=== PATIENT | male | born 1950 | race Hispanic/Latino ===

== ENCOUNTER 2016-07-20 12:28 | Day surgery (SDC) | payer MEDICARE, OTHER ==
[2016-07-15 10:18] VITALS: BMI 29.0
[2016-07-20 12:51] LABS: ADD MANUAL DIFF? NO
[2016-07-20 12:58] LABS: BASO # 0.05 K/mm3 (0.0-2.0); EOS # 0.1 (0.0-0.7); GRAN # 2.65 (1.4-6.5); GRAN % 53.3 % (50.0-68.0); HEMATOCRIT 42.3 % (42.0-52.0); LYMPH # 1.7 (1.2-3.4); LYMPH % 33.2 % (22.0-35.0); MEAN CELL VOLUME 90.8 fL (80.0-105.0); MEAN CORPUSCULAR HEMOGLOBIN 31.5 pg (25.0-35.0); MEAN CORPUSCULAR HGB CONC 34.8 g/dl (31.0-37.0); MEAN PLATELET VOLUME 9.4 fl (7.0-11.0); MONO # 0.5 (0.1-0.6); MONO % 10.5 % (1.0-6.0); PLATELET COUNT 242 10^3/uL (120.0-450.0); RED CELL DISTRIBUTION WIDTH 12.9 % (11.5-14.5)
[2016-07-20 13:04] LABS: BLOOD UREA NITROGEN 20 mg/dL (7-21); CARBON DIOXIDE 28 mmol/L (21-33); CHLORIDE 102 mmol/L (98-107); GFR AFRICAN-AMERICAN > 60; GLUCOSE,RANDOM 98 mg/dL (70-110); POTASSIUM 3.9 mmol/L (3.6-5.0); SODIUM 139 mmol/L (132-148)
[2016-07-20 13:09] LABS: INR 0.99 (0.93-1.08); PARTIAL THROMBOPLASTIN TIME 28.7 Seconds (23.7-30.8)
--- NOTE | 2016-07-20 14:33 | CP.SDSHP ---
Same Day Surgery H & P - History Proposed Procedure: Cat scan guided Lung biopsy Pre-Op Diagnosis: Lung mass - Previous Medical/Surgical History Pulmonary: Smoking (Smoked 1PPD x 40 years,quit 2 months ago.), Cough/URI (Has occasional cough), Other (Has c/o mild R upper chest pain) Misc: Other (had a mole on the dorsum of the L foot,,biopsy reported to show cancer.Had Fx of R big toe ,fixed with a nivia splint.) Pain: 2.Mild Pain (c/o mild pain in R upper chest) Comments: Cat scan of the chest showed a spiculated mass in the R upper lung Previous Surgical History: Excision of axillary cyst. Excision cyst on the back of the neck. Excision mole of the L foot.It was reported to be cancer. Hernioraphy infra umbilical region - Allergies Allergies: Allergies No Known Allergies Allergy (Verified 06/14/12 17:37) - Physical Exam General Appearance: Well nourished male Vital Signs: Vital Signs 07/20/16 13:05 Temperature 98.5 F Pulse Rate 74 Respiratory 20 Rate Blood Pressure 138/80 O2 Sat by Pulse 97 Oximetry Mental Status: Alert & Oriented x3 Neuro: WNL Heart: WNL Lungs: WNL - {Optional Preform as Required} Abdomen: WNL - Impression Impression: R lung mass - Date & Time Date: 07/20/16 Time: 14:15 Short Stay Discharge - Short Stay Discharge Admitting Diagnosis/Reason for Visit: LUNG MASS R91.1 Disposition: HOME/ ROUTINE
[2016-07-20] MEDS ORDERED: Midazolam 2 MG/2 ML VIAL ONE (14:45)
[2016-07-20] MEDS ORDERED: Oxycodone/Acetaminophen 5/325 mg Tab PO PRN (15:44)
[2016-07-20] MEDS ORDERED: Sodium Chloride 0.45% 1,000 ML IV SCH (15:45)
[2016-07-20 16:45] VITALS: TEMP 98; O2SAT 98
--- NOTE | 2016-07-20 17:23 | CT ---
PROCEDURE: CT guided right lung biopsy. HISTORY: 6.5 cm right hilar and mediastinal mass. Value 8 for malignancy. Smoker PHYSICIAN(S): Fabrizio Nevarez MD. TECHNIQUE: The relative risks and indications of the procedure were explained to the patient and consent obtained. The patient was placed supine on the CT scanner and preliminary images through the upper lungs obtained. Conscious sedation and monitoring were provided throughout the procedure by a nurse. There is a 6 cm mass involving the right hilum and extending into the right superior mediastinum. A right anterior approach was selected and the area prepped and draped in the usual sterile fashion. 1% Xylocaine was used to anesthetize the skin and soft tissues. A 19 gauge guiding needle was advanced into the 6.5 cm right hilar mass. Its position was confirmed with CT. Using coaxial technique, multiple core biopsies were obtained. The postprocedure images show no evidence of significant hemorrhage or large pneumothorax.. IMPRESSION: 1. CT-guided right lung biopsy as described above.
[2016-07-20 17:58] VITALS: BP 131/74; PULSE 66; RESP 18
--- NOTE | 2016-07-21 11:17 | RAD ---
HISTORY: Post right lung biopsy. Relevant interventional procedure(s): July 20, 2016. Biopsy right hilar mass. COMPARISON: 03/05/2012. FINDINGS: LUNGS: No pneumothorax following biopsy right hilar mass. No PLEURA: No adverse findings following CT directed biopsy performed July 20, 2016. 16:35. CARDIOVASCULAR: No radiographic findings to suggest acute or significant cardiovascular disease. OSSEOUS STRUCTURES: No significant abnormalities. VISUALIZED UPPER ABDOMEN: Normal. OTHER FINDINGS: None. IMPRESSION: No pneumothorax following right lung/ hilum biopsy.
== END 2016-07-20 18:30 | disposition home or self-care (01) ==
LOC: SDS 12:28
PROVIDERS: ATTEND Radiology Vascular & Interventional Radiology
DX: C34.01 Malignant neoplasm of right main bronchus (principal); Z87.891 Personal history of nicotine dependence; Z85.828 Personal history of other malignant neoplasm of skin
CPT/HCPCS: 32405; 36415; 71010; 77012; 80048; 85025; 85610; 85730; 88305; J2250; J2405; J3010; J7030

== ENCOUNTER 2016-08-26 10:59 | Day surgery (SDC) | payer MEDICARE, OTHER ==
[2016-08-26 11:48] LABS: HEMATOCRIT 39.4 % (42.0-52.0); MEAN CELL VOLUME 89.7 fL (80.0-105.0); MEAN CORPUSCULAR HEMOGLOBIN 30.5 pg (25.0-35.0); MEAN PLATELET VOLUME 9.1 fl (7.0-11.0); RED CELL DISTRIBUTION WIDTH 12.9 % (11.5-14.5); WHITE BLOOD COUNT 6.9 10^3/ul (4.5-11.0)
[2016-08-26 11:51] VITALS: BMI 31.6
--- NOTE | 2016-08-26 11:52 | CP.SDSHP ---
Same Day Surgery H & P - History Proposed Procedure: Insertion of venous port Pre-Op Diagnosis: Lung Ca - Previous Medical/Surgical History Pulmonary: Smoking (smoked 1PPD x 40 years,gave up 3 months ago), Cough/URI ( has cough at times) Misc: Other (History of skin Ca,had excision) Pain: 0. No Pain (C/o mild pain in the R upper chest) Comments: Lung biopsy on 07/20/16 reported to show Lung Ca. Had Fracture R great toe treated with a splint Previous Surgical History: Lung Biopsy. Excision axillary cyst. Colonoscopy < 5 years ago. Excision cyst,back of neck. Excision,mole on L Foot. Hernioraphy infra umbilical region - Allergies Allergies: Allergies No Known Allergies Allergy (Verified 06/14/12 17:37) - Physical Exam General Appearance: Well nourished male Mental Status: Alert & Oriented x3 Neuro: WNL Heart: WNL Lungs: WNL - {Optional Preform as Required} Abdomen: WNL - Impression Impression: Lung Ca - Date & Time Date: 08/26/16 Time: 12:00 Short Stay Discharge - Short Stay Discharge Admitting Diagnosis/Reason for Visit: LUNG CA C34.90 Disposition: HOME/ ROUTINE Referrals: Óscar Morales MD [Primary Care Provider] -
[2016-08-26 12:07] LABS: PARTIAL THROMBOPLASTIN TIME 29.6 Seconds (23.7-30.8)
[2016-08-26 12:09] LABS: BLOOD UREA NITROGEN 19 mg/dL (7-21); CALCIUM 9.4 mg/dL (8.4-10.5); CARBON DIOXIDE 29 mmol/L (21-33); CHLORIDE 101 mmol/L (98-107); GFR AFRICAN-AMERICAN > 60; GLUCOSE,RANDOM 101 mg/dL (70-110); POTASSIUM 4.7 mmol/L (3.6-5.0); SODIUM 139 mmol/L (132-148)
[2016-08-26] MEDS ORDERED: Lidocaine 2% Inj (20ml) ONE (14:00)
[2016-08-26] MEDS ORDERED: Midazolam 2 MG/2 ML VIAL ONE ×2 (14:02→14:53)
[2016-08-26] MEDS ORDERED: Oxycodone/Acetaminophen 5/325 mg Tab PO PRN (15:26)
[2016-08-26] MEDS ORDERED: Sodium Chloride 0.45% 1,000 ML IV SCH (15:30)
[2016-08-26 15:43] VITALS: O2SAT 96
[2016-08-26 16:03] VITALS: PULSE 68
[2016-08-26 16:26] VITALS: BP 119/70; RESP 20; TEMP 98.1
--- NOTE | 2016-08-26 19:54 | VASCULAR ---
PROCEDURE: Ultrasound and fluoroscopic rightupper extremity venous access port. CLINICAL HISTORY: Lung carcinoma.Venous port for chemotherapy. PHYSICIAN(S): Fabrizio Nevarez M.D. TECHNIQUE: The relative risks and indications of the procedure were explained to the patient and consent obtained. The patient was placed supine on the arteriogram table and the right arm prepped and draped in the usual sterile fashion. Conscious sedation monitoring was provided throughout the procedure by a nurse. Antibiotics were given prior to the procedure. A tourniquet was applied the right axilla. Under direct ultrasound guidance, the right basilic vein was punctured with a micro-puncture set. A 0.035 angled Glidewire was advanced into the IVC. A 4 cm incision was made at the venous access site and the pocket blunted dissected. A 6 Frisian single-lumen catheter, 44 cm long, was advanced to the SVC/RA junction. The catheter was trimmed and attached to the port. The port aspirates and injects easily. The port was placed in the pocket and closed in 2 layers. The patient tolerated the procedure well. IMPRESSION: Ultrasound and fluoroscopically placed right upper extremity venous access port.
== END 2016-08-26 16:40 | disposition home or self-care (01) ==
LOC: SDSVAS 10:59
PROVIDERS: ATTEND Radiology Vascular & Interventional Radiology
DX: C34.90 Malignant neoplasm of unspecified part of unspecified bronchus or lung (principal); Z85.828 Personal history of other malignant neoplasm of skin
CPT/HCPCS: 36415; 36561; 76937; 77001; 80048; 85027; 85610; 85730; 99152; C1769; C1788; J0690; J1644; J2250; J2405; J3010; J7030

== ENCOUNTER 2016-09-15 20:21 | Inpatient (IN) | payer MEDICARE, OTHER ==
[2016-09-15] MEDS ORDERED: Vancomycin 1gm in NS 250ml 1 GM/250 ML BAG IVPB STA (20:57)
[2016-09-15] MEDS ORDERED: Piperacillin/Tazobact 3.375 gm 100 ML IVPB STA (20:57)
--- NOTE | 2016-09-15 21:10 | ED PDOC ---
Arrival/HPI - General Chief Complaint: Upper Extremity Problem/Injury Time Seen by Provider: 09/15/16 20:22 Historian: Patient - History of Present Illness Narrative History of Present Illness (Text): 09/15/16 21:07 66 yo male, hx of lung ca, s/p port in right arm, presents with right arm swelling and erythema. pt has had swelling for last few days, started on antibiotics by pmd. pt reports worsening of symptoms. pt reports chronic cough 2 /2 lung ca. no other complaints. sent by pmd to er Time/Duration: < week Symptom Onset: Sudden Symptom Course: Unchanged Activities at Onset: Rest Context: Home Past Medical History - Provider Review Nursing Documentation Reviewed: Yes - Infectious Disease Hx of Infectious Diseases: None - Tetanus Immunization Tetanus Immunization: Unknown - Cardiac Hx Pacemaker: No - Pulmonary Hx Lung Cancer: Yes - Neurological Hx Paralysis: No - Hematological/Oncological Hx Blood Transfusions: No - Musculoskeletal/Rheumatological Hx Musculoskeletal Disorders: No - Psychiatric Hx Emotional Abuse: No Hx Physical Abuse: No Hx Substance Use: No - Surgical History Other/Comment: pass port to rt arm - Anesthesia Hx Anesthesia Reactions: No Hx Malignant Hyperthermia: No - Suicidal Assessment Feels Threatened In Home Enviroment: No Family/Social History - Physician Review Nursing Documentation Reviewed: Yes Family/Social History: No Known Family HX Smoking Status: Former Smoker Hx Alcohol Use: Yes (SOCIALLY) Hx Substance Use: No Allergies/Home Meds Allergies/Adverse Reactions: Allergies No Known Allergies Allergy (Verified 09/15/16 20:46) Home Medications: Home Meds Medication Instructions Recorded Confirmed Folic Acid 1 mg PO BID 08/26/16 09/15/16 Cefadroxil [Duricef] 500 mg PO TID 09/15/16 09/15/16 Review of Systems - Review of Systems Constitutional: Normal Eyes: Normal ENT: Normal Respiratory: Normal Cardiovascular: Normal Gastrointestinal: Normal Genitourinary Male: Normal Musculoskeletal: Normal Skin: Cellulitis Neurological: Normal Endocrine: Normal Hemo/Lymphatic: Normal Psychiatric: Normal Physical Exam Vital Signs Reviewed: Yes Vital Signs Temp Pulse Resp BP Pulse Ox 09/15/16 23:43 98.8 F 102 H 94/55 L 97 09/15/16 23:34 98.8 F 99 H 16 94/55 L 94 L 09/15/16 20:41 102.2 F H 112 H 18 134/74 98 Temperature: Febrile Blood Pressure: Normal Pulse: Tachycardic Respiratory Rate: Normal Appearance: Positive for: Well-Appearing, Non-Toxic, Comfortable Pain Distress: None Mental Status: Positive for: Alert and Oriented X 3 - Systems Exam Head: Present: Atraumatic, Normocephalic Pupils: Present: PERRL Extroacular Muscles: Present: EOMI Conjunctiva: Present: Normal Mouth: Present: Moist Mucous Membranes Neck: Present: Normal Range of Motion Respiratory/Chest: Present: Clear to Auscultation, Good Air Exchange. No: Respiratory Distress, Accessory Muscle Use Cardiovascular: Present: Regular Rate and Rhythm, Normal S1, S2. No: Murmurs Abdomen: Present: Normal Bowel Sounds. No: Tenderness, Distention, Peritoneal Signs Back: Present: Normal Inspection Upper Extremity: Present: Normal Inspection, NORMAL PULSES, Swelling, Erythema ( +4-5 cm to right arm. ). No: Cyanosis, Edema Lower Extremity: Present: Normal Inspection. No: Edema Neurological: Present: GCS=15, CN II-XII Intact, Speech Normal Skin: Present: Warm, Dry, Normal Color. No: Rashes Psychiatric: Present: Alert, Oriented x 3, Normal Insight, Normal Concentration Medical Decision Making ED Course and Treatment: 09/15/16 21:09 Impression: A 66 year old male with right arm swelling and erythema. Differential Diagnosis included but are not limited to: r/o DVT, cellulitis Plan: -- chest xray -- labs -- Urinalysis -- US duplex upper extremity vein right -- Vancomycin, Zosyn -- Reassess and disposition Progress Notes: pt with right arm swelling r/o dvt, cellulits. failure of outpt. family refuses cxr at this time. 09/15/16 23:01 dvt study postive as per tech. pmd updated. lovenox dosed - Lab Interpretations Lab Results: 09/15/16 21:45 Lab Results 09/15/16 21:45: Sodium 135, Chloride 101, Potassium 4.1, Carbon Dioxide 28, Anion Gap 10, BUN 12, Creatinine 0.9, Est GFR ( Amer) > 60, Est GFR (Non- Af Amer) > 60, Random Glucose 102, Calcium 9.3, Total Bilirubin 0.8, AST 31, ALT 34, Alkaline Phosphatase 98, Total Protein 7.3, Albumin 3.7, Globulin 3.7, Albumin/Globulin Ratio 1.0 L 09/15/16 21:45: PT 12.1 H, INR 1.12 H, APTT 29.7 09/15/16 21:45: pO2 37, VBG pH 7.31 L, VBG pCO2 55.0, VBG HCO3 27.7, VBG Total CO2 29.4 H, VBG O2 Sat (Calc) 71.9 H, VBG Base Excess 0.4, VBG Potassium 4.3, Sodium 136.0, Chloride 103.0, Glucose 103, Lactate 2.0, FiO2 21.0, Venous Blood Potassium 4.3 09/15/16 20:45: Urine Color Yellow, Urine Appearance Clear, Urine pH 6.0, Ur Specific [place] 1.025, Urine Protein Trace H, Urine Glucose (UA) Negative, Urine Ketones Negative, Urine Blood Trace-intact H, Urine Nitrate Negative, Urine Bilirubin Negative, Urine Urobilinogen 2.0 H, Ur Leukocyte Esterase Negative, Urine RBC 1 - 3, Urine WBC 0 - 2, Ur Epithelial Cells 0 - 2 I have reviewed the lab results: Yes - RAD Interpretation Radiology Orders: 09/15/16 20:57 DUPLEX UPPER EXTRM VEIN RIGHT [US] Stat - Medication Orders Current Medication Orders: Acetaminophen (Tylenol 325mg Tab) 650 mg PO Q4 PRN PRN Reason: Fever >100.4 F Guaifenesin/Codeine Phosphate (Robitussin W/Codeine) 5 ml PO Q4H PRN PRN Reason: Cough and congestion Ceftaroline Fosamil 400 mg/ (Sodium Chloride) 100 mls @ 100 mls/hr IVPB Q12 ANABELL PRN Reason: Protocol Stop: 09/22/16 23:46 Last Admin: 09/16/16 00:40 Dose: 100 mls/hr Discontinued Medications Enoxaparin Sodium (Lovenox) 106 mg SC STAT STA PRN Reason: Protocol Stop: 09/15/16 22:53 Last Admin: 09/15/16 23:29 Dose: 106 mg Vancomycin HCl (Vancomycin 1gm) 1 gm in 250 mls @ 167 mls/hr IVPB STAT STA PRN Reason: Protocol Stop: 09/15/16 22:26 Piperacillin Sod/Tazobactam Sod (Zosyn 3.375 In Ns 100ml) 100 mls @ 200 mls/hr IVPB STAT STA PRN Reason: Protocol Stop: 09/15/16 21:26 Last Admin: 09/15/16 23:27 Dose: 200 mls/hr Vancomycin HCl (Vancomycin 1gm) 1 gm in 250 mls @ 167 mls/hr IVPB STAT STA PRN Reason: Protocol Stop: 09/16/16 02:18 Last Admin: 09/16/16 01:01 Dose: 167 mls/hr - Scribe Statement The provider has reviewed the documentation as recorded by the Mo Dixon Provider Scribe Attestation: All medical record entries made by the Mo were at my direction and personally dictated by me. I have reviewed the chart and agree that the record accurately reflects my personal performance of the history, physical exam, medical decision making, and the department course for this patient. I have also personally directed, reviewed, and agree with the discharge instructions and disposition. Disposition/Present on Arrival - Present on Arrival Any Indicators Present on Arrival: No History of DVT/PE: No History of Uncontrolled Diabetes: No Urinary Catheter: No History of Decub. Ulcer: No History Surgical Site Infection Following: None - Disposition Have Diagnosis and Disposition been Completed?: Yes Diagnosis: DVT (deep venous thrombosis), Infected venous access port Disposition: HOSPITALIZED Disposition Time: 11:00 Condition: FAIR
[2016-09-15] MEDS ORDERED: guaiFENesin-Codeine 100-10mg/5ml Syrup (5 ml) UD PO PRN (21:48)
[2016-09-15 22:00] LABS: VENOUS BLOOD GAS BASE EXCESS 0.4 mmol/L (0.0-2.0); VENOUS BLOOD PH 7.31 (7.32-7.43)
[2016-09-15 22:07] LABS: ALKALINE PHOSPHATASE 98 U/L (38-133); ALT/SGPT 34 U/L (7-56); AST/SGOT 31 U/L (15-59); BILIRUBIN,TOTAL 0.8 mg/dL (0.2-1.3); BLOOD UREA NITROGEN 12 mg/dL (7-21); CALCIUM 9.3 mg/dL (8.4-10.5); CARBON DIOXIDE 28 mmol/L (21-33); CHLORIDE 101 mmol/L (98-107); GFR AFRICAN-AMERICAN > 60; GLUCOSE,RANDOM 102 mg/dL (70-110); POTASSIUM 4.1 mmol/L (3.6-5.0); SODIUM 135 mmol/L (132-148); TOTAL PROTEIN 7.3 g/dL (5.8-8.3)
[2016-09-15 22:10] LABS: INR 1.12 (0.93-1.08); PARTIAL THROMBOPLASTIN TIME 29.7 Seconds (23.7-30.8)
[2016-09-15 22:37] LABS: URINE BILIRUBIN NEGATIVE (NEGATIVE); URINE BLOOD TRACE-INTACT (NEGATIVE); URINE GLUCOSE (UA) NEGATIVE (NEGATIVE); URINE KETONE NEGATIVE (NEGATIVE); URINE LEUKOCYTE ESTERASE NEGATIVE Leu/uL (NEGATIVE); URINE PROTEIN TRACE mg/dL (<30 mg/dL)
[2016-09-15 22:39] LABS: URINE APPEARANCE CLEAR (CLEAR); URINE COLOR YELLOW (YELLOW)
[2016-09-15 22:52] LABS: URINE EPITHELIAL CELLS 0 - 2 /hpf (0-5); URINE WBC 0 - 2 /hpf (0-6)
[2016-09-15] MEDS ORDERED: Enoxaparin 120 mg Syringe SC STA (22:52)
[2016-09-15 23:11] LABS: ADD MANUAL DIFF? NO
[2016-09-15 23:15] LABS: BASO # 0.01 K/mm3 (0.0-2.0); BASO % 0.1 % (0.0-3.0); EOS % 0.2 % (1.5-5.0); GRAN # 7.42 (1.4-6.5); GRAN % 88.1 % (50.0-68.0); HEMATOCRIT 32.9 % (42.0-52.0); LYMPH # 0.5 (1.2-3.4); LYMPH % 5.5 % (22.0-35.0); MEAN CELL VOLUME 89.2 fL (80.0-105.0); MEAN CORPUSCULAR HEMOGLOBIN 30.4 pg (25.0-35.0); MEAN PLATELET VOLUME 8.5 fl (7.0-11.0); MONO # 0.5 (0.1-0.6); MONO % 6.1 % (1.0-6.0); PLATELET COUNT 206 10^3/uL (120.0-450.0); RED CELL DISTRIBUTION WIDTH 14.1 % (11.5-14.5); WHITE BLOOD COUNT 8.4 10^3/ul (4.5-11.0)
[2016-09-16] MEDS ORDERED: Vancomycin 1gm in NS 250ml 1 GM/250 ML BAG IVPB STA (00:49)
[2016-09-16 01:25] VITALS: BMI 30.9
[2016-09-16 02:22] LABS: VENOUS BLOOD GAS BASE EXCESS 0.5 mmol/L (0.0-2.0); VENOUS BLOOD PH 7.38 (7.32-7.43)
[2016-09-16 07:40] LABS: ADD MANUAL DIFF? NO
[2016-09-16 07:46] LABS: BASO # 0.01 K/mm3 (0.0-2.0); BASO % 0.1 % (0.0-3.0); EOS % 0.3 % (1.5-5.0); GRAN # 6.33 (1.4-6.5); GRAN % 87.8 % (50.0-68.0); HEMATOCRIT 33.6 % (42.0-52.0); LYMPH # 0.4 (1.2-3.4); LYMPH % 5.4 % (22.0-35.0); MEAN CELL VOLUME 89.8 fL (80.0-105.0); MEAN CORPUSCULAR HGB CONC 34.5 g/dl (31.0-37.0); MEAN PLATELET VOLUME 8.6 fl (7.0-11.0); MONO # 0.5 (0.1-0.6); MONO % 6.4 % (1.0-6.0); PLATELET COUNT 201 10^3/uL (120.0-450.0); RED CELL DISTRIBUTION WIDTH 14.2 % (11.5-14.5); WHITE BLOOD COUNT 7.2 10^3/ul (4.5-11.0)
[2016-09-16 07:59] LABS: ALB/GLOB RATIO 1.1 (1.1-1.8); ALKALINE PHOSPHATASE 119 U/L (38-133); ALT/SGPT 37 U/L (7-56); AST/SGOT 27 U/L (15-59); BILIRUBIN,TOTAL 0.6 mg/dL (0.2-1.3); CALCIUM 8.7 mg/dL (8.4-10.5); CARBON DIOXIDE 23 mmol/L (21-33); CHLORIDE 102 mmol/L (95-110); GFR AFRICAN-AMERICAN > 60; GLUCOSE,RANDOM 89 mg/dL (70-110); SODIUM 133 mmol/L (132-148); TOTAL PROTEIN 6.9 g/dL (5.8-8.3)
--- NOTE | 2016-09-16 08:06 | HP ---
For Dr. Medeiros. CHIEF COMPLAINT: Right upper extremity cellulitis. HISTORY OF PRESENT ILLNESS: The patient is a 66-year-old male admitted via the Emergency Room for wo rsening erythema, pain and swelling with elevated temperatures to his right upper extremity where he recently had a port placed by Dr. Fabrizio Nevarez for chemotherapy for his known recently diagnosed cance r of the lung. The patient reports incidental trauma while he was backing up his car with the patien t banging his port site on his car door. Otherwise, he is without complaint except for discomfort to that area. PAST MEDICAL HISTORY: Significant for an axillary cyst excision with mole excision on his foot and o n his back with herniorrhaphy in the past. Recently diagnosed lung cancer, fracture of the right gre at toe with now cough for the past few months. ALLERGIES: No known allergies. FAMILY HISTORY AND SOCIAL HISTORY: at the bedside. Positive smoker of 1 pack a day for 40 year s, recently quit. Occasional alcohol use. Otherwise, noncontributory. 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 REVIEW OF SYSTEMS: Essentially negative to questioning except as above. PRESENT MEDICATIONS: Include folic acid, Duricef started yesterday. OBJECTIVE AND PHYSICAL EXAMINATION: VITAL SIGNS: Temperature 102.2, pulse 112, respirations 18, blood pressure 134/74, pulse ox 98%. HEENT: Unremarkable. NECK: Supple. HEART: Tachy rate, regular rhythm. LUNGS: Clear. ABDOMEN: Soft, nontender. EXTREMITIES: Positive erythema, increased warmth, +1 edema of the port site in the right upper extre mity. SKIN: Otherwise, warm, dry and clear. NEUROLOGIC: Awake, alert, and oriented x 3. The patient's labs were done and will be reviewed upon return. The patient will also have an ultrasound of the right upper extremity. ASSESSMENT: Severe cellulitis right upper extremity at port site, recently diagnosed cancer of the l nya, fever related to cellulitis of the right upper extremity, chronic cough secondary to cancer of t he lung, history of smoking. PLAN: Will be to admit to the med/surg floor. We will ask for a consult with Dr. Ch, infect ious disease. We will give antibiotics as per Dr. Ch with followup as per his primary, Dr. Cynthia garg, with analgesics for his pain and Tylenol as indicated. We will also ask for consult with Lauren Nevarez regarding possible port removal if necessary as per Dr. Medeiros's recommendation and Lauren Nevarez. We will monitor clinically and with labs. Lawrence Munoz MD cc: [phone] TT: 09/16/2016 08:05:51 en
[2016-09-16 08:17] LABS: BLOOD UREA NITROGEN 12 mg/dL (7-21)
--- NOTE | 2016-09-16 12:23 | CP.PCM.CON ---
History of Present Illness - History of Present Illness History of Present Illness: 66 year old male with recent diagnosis of lung cancer S/P chemotherapy and radiotherapay about a month ago, S/P right upper arm port-a-cath placement about a month ago, obesity with BMI 31 came in to [facility] complaining of progressively worsening right upper arm swelling and pain for the past 3-4 days. It was seen initially as an outpatient by the patient's Oncologist and was given a dose of unrecalled antibiotics without relief. The patient developed subjective fever and chills and in the ED he was noted to have fever. He denies headache or dizzines, no nausea or vomiting, no chest pain , no SOB, has occasional cough, no abdominal pain, no diarrhea, no dysuria. He denies recent travel outside of [place] in the past 3 months and denies animal exposures. Infectious diseases consult is requested to further evaluate and manage. Review of Systems - Review of Systems All systems: reviewed and no additional remarkable complaints except (as per HPI ) Past Patient History - Infectious Disease Hx of Infectious Diseases: None - Tetanus Immunizations Tetanus Immunization: Unknown - Past Social History Smoking Status: Former Smoker - CARDIAC Hx Pacemaker: No - PULMONARY Hx Lung Cancer: Yes - NEUROLOGICAL Hx Paralysis: No - HEMATOLOGICAL/ONCOLOGICAL Hx Blood Transfusions: No - MUSCULOSKELETAL/RHEUMATOLOGICAL Hx Musculoskeletal Disorders: No - PSYCHIATRIC Hx Emotional Abuse: No Hx Physical Abuse: No Hx Substance Use: No - SURGICAL HISTORY Other/Comment: pass port to rt arm - ANESTHESIA Hx Anesthesia Reactions: No Hx Malignant Hyperthermia: No Meds Allergies/Adverse Reactions: Allergies Allergy/AdvReac Type Severity Reaction Status Date / Time No Known Allergies Allergy Verified 09/15/16 20:46 - Medications Medications: Current Medications Acetaminophen (Tylenol 325mg Tab) 650 mg PO Q4 PRN PRN Reason: Fever >100.4 F Guaifenesin/Codeine Phosphate (Robitussin W/Codeine) 5 ml PO Q4H PRN PRN Reason: Cough and congestion Physical Exam - Constitutional Appears: Non-toxic, No Acute Distress - Head Exam Head Exam: NORMAL INSPECTION - ENT Exam ENT Exam: Mucous Membranes Moist - Neck Exam Neck exam: Negative for: Lymphadenopathy, Meningismus - Respiratory Exam Respiratory Exam: Decreased Breath Sounds - Cardiovascular Exam Cardiovascular Exam: +S1, +S2 - GI/Abdominal Exam GI & Abdominal Exam: Soft. absent: Tenderness - Extremities Exam Additional comments: right upper extremity erythema, swelling and tenderness over the site of the port-a-cath, with some serosanginous discharge noted Results - Vital Signs Recent Vital Signs: Last Vital Signs Temp 102.2 F H 09/15/16 20:41 Pulse 112 H 09/15/16 20:41 Resp 18 09/15/16 20:41 BP 134/74 09/15/16 20:41 Pulse Ox 98 09/15/16 20:41 - Labs Result Diagrams: 09/16/16 07:00 09/16/16 07:00 Labs: Laboratory Results - last 24 hr 09/15/16 23:00 WBC 8.4 D RBC 3.69 Hgb 11.2 L Hct 32.9 L MCV 89.2 MCH 30.4 MCHC 34.0 RDW 14.1 Plt Count 206 MPV 8.5 Gran % 88.1 H Lymph % (Auto) 5.5 L [place] % (Auto) 6.1 H Eos % (Auto) 0.2 L Baso % (Auto) 0.1 Gran # 7.42 H Lymph # 0.5 L [place] # 0.5 Eos # 0.0 Baso # 0.01 Assessment & Plan - Assessment and Plan (Free Text) Plan: Assessment Sepsis due to right upper arm port-a-cath site infection with cellulitis R/O infected venous thrombophlebitis recent diagnosis of lung cancer S/P chemotherapy and radiotherapay about a month ago S/P right upper arm port-a-cath placement about a month ago obesity with BMI 31 Plan Started patient on Teflaro pending blood cx, cultures from the port-a-cath site , doppler ultrasound to rule out thrombosis - if cultures are positive and/or there is a thrombus, would recommend to remove the port will follow clinically
--- NOTE | 2016-09-16 17:55 | US ---
HISTORY: Leg pain and swelling. Evaluate for DVT PHYSICIAN(S): Fabrizio Nevarez MD. TECHNIQUE: Duplex sonography and color-flow Doppler with graded compression were used to evaluate the deep venous systems of both lower extremities. FINDINGS: The visualized deep venous systems of both lower extremities are sonographically normal and compressible. Normal wave forms and augmentation are seen. There is no sonographic evidence for deep venous thrombosis in the visualized segments of both lower extremities. IMPRESSION: No sonographic evidence for deep venous thrombosis in the visualized segments of both lower extremities.
--- NOTE | 2016-09-16 18:09 | PN ---
DATE: 09/16/2016 The patient is in room 369, bed 1. 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 He is now admitted to [facility] ER complaining of progressive worsening of right upper arm swelling and pain for the past 3 day s. Initially had been seen as an outpatient in the primary oncologist's office, given a dose of Roce phin along with p.o. ____ he was put on. The patient subjectively developed fevers, chills in the ER , noted to have fever. Denies any history of headaches, nausea and vomiting. No chest pain, shortne ss of breath, has been having occasional cough. The patient has completed about 2 weeks of radiation and overall the pain and discomfort that he had in the right chest wall area has gotten improved. S wallowing is okay. No nausea, no vomiting, no diarrhea. The patient is admitted after being assesse d initially in the Emergency Room and had been given broad spectrum antibiotics with IV vancomycin 1 dose and IV Teflaro and he is admitted to the floor for further management. REVIEW OF SYSTEMS: All systems reviewed and no additional remarkable complaint except as mentioned i n the HPI. SOCIAL HISTORY: The patient is a former smoker, quit smoking after the diagnosis of cancer was made. The patient denies any history of difficulty in swallowing. History of fevers and chills. No hist ory of hemoptysis. No headaches. The patient denies any history of nausea, vomiting. No history of hematochezia, no history of diarrhea, no history of abdominal cramps. ALLERGIES: The patient has no known allergies. MEDICATIONS: The patient's medications were reviewed from the current hospitalization. They will be discussed below. PHYSICAL EXAMINATION: GENERAL: The patient appears to be nontoxic today in no acute distress. HEENT: Head is normocephalic, atraumatic. Conjunctivae pale. Sclerae are anicteric. Pupils are e qually reactive to light and accommodation. Examination of the oropharynx reveals no oropharyngeal l esions. NECK: Supple. There is no adenopathy. No jugular venous distention noted. LUNGS: Clear to percussion and auscultation with decreased breath sounds on the right side posterior ly in the upper lung field. CARDIOVASCULAR: Reveals S1 and S2 to be normal. No gallop or murmur is heard. ABDOMEN: Soft, nontender. Liver and spleen are not palpable. EXTREMITIES: Right upper extremity reveals erythema, swelling, tenderness over the side of the port, just above the elbow on the right arm with some serosanguineous discharge just at the site where he had the sutures through which the port had been inserted. The port site itself also looks erythemato us. There is no recent puncture bourgeois indicative of recent use of the port. The patient apparently tells me he had bumped his arm when he was trying to back up his car, when he may have hit the port a nd caused problems for the port. VITAL SIGNS: Reveal the patient's T-max to be 102.2, pulse is 112, respirations 18, blood pressure 1 37/74, pulse ox is ____% on room air. The patient currently is afebrile. LABORATORY DATA: Reveals a white count of 7.2, hemoglobin 11.6, hematocrit 33, platelet count 201,00 0. Sodium is 133, K is 4, chloride is 102, CO2 is 23, BUN is 12, creatinine 0.8, glucose is 89. ASSESSMENT NOTES AND PLAN: The patient has sepsis due to right upper arm port site infection with ce llulitis, rule out infectious thrombophlebitis. The patient had an ultrasound of the arm done, which is unofficially read as possible clot in the right upper arm, status post placement of a port about a month ago. PLAN: The patient has been started on broad spectrum antibiotics with vancomycin and Teflaro pending further analysis of blood cultures and the cultures from the port site. The patient has been contin ued on IV fluids. The patient mentions to me that since through the night he had throbbing pain over the site and then he had serosanguineous discharge and overall he feels 100% better in the morning s jayshree admission and his arm pain and swelling is dramatically reduced by more than 70%. The patient's medications were reviewed. CURRENT MEDICATIONS: He is on ceftaroline, ____ 400 mg IV q. 12 hours, on Lovenox, he had [address] night and we are going to continue Lovenox 160 mg q. 12 hours. He is on Robitussin with codeine 5 mL q. 4 hours p.r.n., Tylenol p.r.n. The patient tells me he has new onset of ankle edema on the left lower extremity compared to the righ t. We will plan on getting a venous Doppler of both lower extremities. I spoke to Dr. Fabrizio Nevarez, vascular radiologist. He is going to look at the arm and he is going to look at the ultrasound. Cur rently, we are going to keep proceeding with the IV antibiotics and IV heparin to see in which direct ion we go. If he defervesces and he continues to improve, we will try to save the port; otherwise we will make decisions accordingly, including plans for removal of the port pending the cultures. Sinc e the patient is currently feeling well, we will continue the current treatment plan. Routine post e xam instructions have been given to the patient. Labs for a.m. have been requested. Roma Medeiros MD cc: [id number] TT: 09/16/2016 18:08:46 Confirmation # [id number] Dictation # [id number] andre
--- NOTE | 2016-09-16 18:34 | US ---
PROCEDURE: Right Upper Extremity Venous Doppler HISTORY: swelling r/o dvt COMPARISON: None available. TECHNIQUE: Right extremity deep veins, including the lower internal jugular, subclavian, axillary and brachial veins, were evaluated flow, compressibility and respiratory phasicity. FINDINGS: The brachial vein is distended and there is an acute occlusive thrombus. Normal flow, compressibility and respiratory phasicity was observed in the right internal jugular and subclavian veins. There is normal flow and compressibility in the basilar vein. IMPRESSION: Acute occlusive thrombus in the right brachial vein.
[2016-09-16] MEDS: Enoxaparin 120 mg Syringe SC SCH (21:56)
[2016-09-17 07:40] LABS: HEMATOCRIT 32.1 % (42.0-52.0); MEAN CELL VOLUME 88.9 fL (80.0-105.0); MEAN CORPUSCULAR HEMOGLOBIN 29.6 pg (25.0-35.0); MEAN CORPUSCULAR HGB CONC 33.3 g/dl (31.0-37.0); MEAN PLATELET VOLUME 8.5 fl (7.0-11.0); RED CELL DISTRIBUTION WIDTH 14.2 % (11.5-14.5); WHITE BLOOD COUNT 5.6 10^3/ul (4.5-11.0)
[2016-09-17] MEDS: Enoxaparin 120 mg Syringe SC SCH ×2 (10:11→23:43)
--- NOTE | 2016-09-17 13:48 | CON ---
DATE: 09/17/2016 HISTORY OF PRESENT ILLNESS: The patient is a 66-year-old male whom I last saw in the office a few mo nths ago when the patient was complaining of a chronic cough. Chest x-ray was ordered and showed a r ight lung mass. Followup CAT scan shows a right upper lobe mass. Since that time, the patient was e valuated by Dr. Medeiros, the oncologist, radiation oncology. He also saw a thoracic surgeon in [facility]. He has undergone a PET scan which showed no metastatic lesions from his lung carcinoma. Biops y was apparently inconclusive. The patient underwent 11 treatments of radiotherapy and 4 doses of ch emotherapy. Last week a PICC line was placed in his right upper extremity and the patient tolerated the procedure well; however, in normal workings around the house, the patient apparently traumatized the area. It became erythematous, his arm was swollen from the shoulder to the fingers. He reported to Dr. Medeiros and is hospitalized. Workup showed an acute deep vein thrombosis in the right upper extremity. During this hospital stay he is being followed by infectious disease who started the elissa ent on Teflaro for the cellulitis. Yesterday he had some ankle swelling. Venous Dopplers of lower e xtremities were negative for DVT. Today's blood cultures have been negative x 2. ALLERGIES: The patient has no known medical allergies. PAST MEDICAL HISTORY: Positive for COPD which does not require treatment and is otherwise negative. PHYSICAL EXAMINATION: GENERAL: When seen today, the patient is lying comfortably in bed. EXTREMITIES: The swelling in the right upper extremity as well as his legs has gone down. The erythe matous area surrounding the port in the right upper extremity is decreasing. The patient voices no c omplaints. His respirations are easy. LUNGS: Clear but distant anteriorly. HEART: Regular. VITAL SIGNS: This morning are stable with a blood pressure of 101/63, heart rate of 98 and he remain s afebrile. LABORATORY STUDIES: This morning his white blood cell count is 5.6, hemoglobin and hematocrit are 10 .7 and 32.1 respectively, platelet count is 231. After yesterday's visit, I spoke with Dr. Mala croft the patient does not appear septic. His white cell count is normal. He has no fever and he seems to be responding to intravenous antibiotics. Dr. Medeiros and I agree to try to save the port rather than remove it as was suggested by infectious disease; however, if the condition changes we will cert ainly remove the port to treat the cellulitis. We will continue to follow the patient closely. Kb Morales MD cc: [phone] TT: 09/17/2016 13:47:12 Confirmation # [id number] Dictation # [id number] jn
--- NOTE | 2016-09-17 18:43 | PN ---
DATE: 09/17/2016 The patient is in bed in no acute distress and nontoxic. PHYSICAL EXAMINATION: VITAL SIGNS: Temperature is 98, blood pressure is 101/60, respiratory rate of 18 and heart rate of 9 8. HEENT: Unremarkable. NECK: Supple. LUNGS: Have decreased breath sounds. HEART: Normal S1, S2. ABDOMEN: Soft and nontender. LABORATORY DATA: Reveals a white count of 5.6, hemoglobin of 10 and platelets of 231. The chemistri es reveals a BUN of 12 and creatinine of 0.8. Urinalysis is noted. Microbiology reveals the blood c ultures positive for gram-positive cocci in 1 bottle, Staphylococcus aureus by PNA FISH. Examination of the arm reveals erythema where the Port-A-Cath is present. Dr. Kb Morales's consultation i s reviewed. Dr. Medeiros's note is reviewed. ASSESSMENT AND PLAN: A 66-year-old with sepsis with gram-positive cocci, Staphylococcus aureus bacte remia with a right arm Port-A-Cath site infection and cellulitis and an infected venous thrombophlebi tis with an ultrasound of the arm, which is consistent with a thrombus. The patient currently with a cute occlusive thrombus in the right brachial vein. By definition, the patient has endovasculitis and will need prolonged antibiotic therapy and should have a transesophageal echocardiogram. The patien t is on Teflaro and because of his renal insufficiency in the past, he should need a transesophageal echocardiogram and recommended removal of the Port-A-Cath. Will check on the sensitivity of the Stap hylococcus aureus. Rodrigo Ch MD cc: [phone] TT: 09/17/2016 18:42:19 Confirmation # [id number] Dictation # [id number] sn
--- NOTE | 2016-09-17 22:51 | CP.PCM.PN ---
Subjective - Date & Time of Evaluation Date of Evaluation: 09/17/16 Time of Evaluation: 18:00 - Subjective Subjective: No acute issues 12 ROS negative Objective - Vital Signs/Intake and Output Vital Signs (last 24 hours): Temp Pulse Resp BP Pulse Ox 99.4 F 75 20 112/66 90 L 09/17/16 18:00 09/17/16 18:00 09/17/16 18:00 09/17/16 18:00 09/17/16 18:00 Intake and Output: 09/17/16 09/18/16 18:59 06:59 Intake Total 360 600 Balance 360 600 - Medications Medications: Current Medications Acetaminophen (Tylenol 325mg Tab) 650 mg PO Q4 PRN PRN Reason: Fever >100.4 F Enoxaparin Sodium (Lovenox) 106 mg SC Q12H ANABELL PRN Reason: Protocol Last Admin: 09/17/16 10:11 Dose: 106 mg Guaifenesin/Codeine Phosphate (Robitussin W/Codeine) 5 ml PO Q4H PRN PRN Reason: Cough and congestion Ceftaroline Fosamil 400 mg/ (Sodium Chloride) 100 mls @ 100 mls/hr IVPB Q12 ANABELL PRN Reason: Protocol Stop: 09/22/16 23:46 Last Admin: 09/17/16 10:06 Dose: 100 mls/hr - Labs Labs: 09/17/16 07:32 09/16/16 07:00 PT 12.1 Seconds (9.9-11.8) H 09/15/16 21:45 INR 1.12 (0.93-1.08) H 09/15/16 21:45 APTT 29.7 Seconds (23.7-30.8) 09/15/16 21:45 - Constitutional Appears: Well - Respiratory Exam Respiratory Exam: Clear to Ausculation Bilateral, NORMAL BREATHING PATTERN - GI/Abdominal Exam GI & Abdominal Exam: Soft, Normal Bowel Sounds. absent: Tenderness - Extremities Exam Additional comments: Erythema of RUE near port site Assessment and Plan - Assessment and Plan (Free Text) Assessment: Mr. Hopson parul 66 y/o man with pmhx significant for NSLC who is admitted with RUE cellulitis, DVT and now found to be bacteremic. Patient currently stable. Plan on continuing IV abx per ID recommendations and BID lovenox 1mg/kg dosing. Patient's chemotherapy can not be given while he is getting treatment for bactermia and will likely be delayed in future. Plan was discussed with patient and son. Sharad Medeiros MD Oncology Service
[2016-09-18] MEDS: Enoxaparin 120 mg Syringe SC SCH (09:08)
--- NOTE | 2016-09-18 16:36 | CP.PCM.CON ---
Addendum entered and electronically signed by Yumiko Jones DO 09/18/16 16:57 : Wound cx sent Original Note: <Yumiko Jones - Last Filed: 09/18/16 16:54> History of Present Illness - History of Present Illness History of Present Illness: GENERAL SURGERY CONSULT NOTE FOR DR. REY (covering for Dr. Victoria) 66yo M with PMHx of recently diagnosed lung cancer on chemo and radiation who presented to the ED on 09/15 for right arm swelling and erythema. The swelling began on Mon or . He was initially seen as an outpatient and given antibiotics without symptom resolution. The sx worsened prompting him to come to the ED. He had a port placed for chemo on 08/29/[address] Fabrizio Nevarez. He has had 1 round of chemo so far and gets radiation M/W/F. He has chronic cough secondary to lung ca. US Duplex Right upper extremity showed + DVT in right brachial vein. Lower extremity US was negative for DVT. Blood cx grew gram + cocci in clusters. PMHx: stage IIIB nonsmall cell lung carcinoma of right lung diagnosed about a month ago Surgeries: axillary cyst excision, herniorrhaphy Allergies: none Social history: former smoker, quit when got dx of lung ca, previously smoked 1 PPD for 40 years, no etoh since cancer diagnosis Past Patient History - Infectious Disease Hx of Infectious Diseases: None - Tetanus Immunizations Tetanus Immunization: Unknown - Past Social History Smoking Status: Former Smoker - CARDIAC Hx Pacemaker: No - PULMONARY Hx Lung Cancer: Yes - NEUROLOGICAL Hx Paralysis: No - HEMATOLOGICAL/ONCOLOGICAL Hx Blood Transfusions: No - MUSCULOSKELETAL/RHEUMATOLOGICAL Hx Musculoskeletal Disorders: No - PSYCHIATRIC Hx Emotional Abuse: No Hx Physical Abuse: No Hx Substance Use: No - SURGICAL HISTORY Other/Comment: pass port to rt arm - ANESTHESIA Hx Anesthesia Reactions: No Hx Malignant Hyperthermia: No Meds Allergies/Adverse Reactions: Allergies Allergy/AdvReac Type Severity Reaction Status Date / Time No Known Allergies Allergy Verified 09/15/16 20:46 - Medications Medications: Current Medications Acetaminophen (Tylenol 325mg Tab) 650 mg PO Q4 PRN PRN Reason: Fever >100.4 F Guaifenesin/Codeine Phosphate (Robitussin W/Codeine) 5 ml PO Q4H PRN PRN Reason: Cough and congestion Ceftaroline Fosamil 400 mg/ (Sodium Chloride) 100 mls @ 100 mls/hr IVPB Q12 ANABELL PRN Reason: Protocol Stop: 09/22/16 23:46 Last Admin: 09/18/16 09:09 Dose: 100 mls/hr Physical Exam - Extremities Exam Additional comments: erythema, edema to medial right upper arm over portacath site, small amount of purulent discharge Results - Vital Signs Recent Vital Signs: Last Vital Signs Temp 97.8 F 09/18/16 06:00 Pulse 92 H 09/18/16 06:00 Resp 17 09/18/16 06:00 BP 106/69 09/18/16 06:00 Pulse Ox 98 09/18/16 06:00 - Labs Result Diagrams: 09/17/16 07:32 09/16/16 07:00 Assessment & Plan - Assessment and Plan (Free Text) Assessment: 66yo M with PMHx of recently diagnosed lung cancer on chemo and radiation who presented with right arm swelling and erythema and was admitted for cellulitis of right upper arm at port site and found to have Staph Aureus bacteremia as well as infected venous thrombophlebitis. Surgery consulted to remove infected portacath. - Febrile on admission, currently afebrile, no leukocytosis - IV Abx per ID - ID [facility] and MISBAH as well as removal of Port-a-Cath - Plan for OR tomorrow morning to remove Port-a-Cath - NPO past midnight - Lovenox stopped for OR tomorrow - Consent in chart - Discussed plan with Dr. Dayron Jones PGY-2 <Estiven Rey - Last Filed: 09/19/16 10:16> Meds - Medications Medications: Current Medications Acetaminophen (Tylenol 325mg Tab) 650 mg PO Q4 PRN PRN Reason: Fever >100.4 F Guaifenesin/Codeine Phosphate (Robitussin W/Codeine) 5 ml PO Q4H PRN PRN Reason: Cough and congestion Ceftaroline Fosamil 400 mg/ (Sodium Chloride) 100 mls @ 100 mls/hr IVPB Q12 ANABELL PRN Reason: Protocol Stop: 09/22/16 23:46 Last Admin: 09/18/16 09:09 Dose: 100 mls/hr Sodium Chloride (Sodium Chloride 0.9%) 1,000 mls @ 100 mls/hr IV .Q10H ANABELL Results - Vital Signs Recent Vital Signs: Last Vital Signs Temp 98.6 F 09/18/16 17:00 Pulse 103 H 09/18/16 17:00 Resp 18 09/18/16 17:00 BP 132/80 09/18/16 17:00 Pulse Ox 96 09/18/16 17:00 - Labs Result Diagrams: 09/17/16 07:32 09/16/16 07:00 Assessment & Plan - Assessment and Plan (Free Text) Plan: Dx Gram pos cocci bacteremia secondary to infected-thrombosed R Arm PAC Pt needs PAC Removal(w iv sedation-6/12 am) Has XRT treatment and MISBAH scheduling to be worked around This consult done under my direct supervision Chandu Rey MD FACS
--- NOTE | 2016-09-18 17:34 | PN ---
DATE: 09/18/2016 The patient was seen earlier this morning in room 369, bed 1. He is doing better. No fevers and no chills. PHYSICAL EXAMINATION: VITAL SIGNS: Temperature is 97. The patient did have a temperature of 102 on admission. Blood pres sure is 106/60, respiratory rate of 18, heart rate of 92. He is saturating at 90% as of yesterday. HEENT: Unremarkable. NECK: Supple. LUNGS: Have decreased breath sounds. HEART: Normal S1, S2. ABDOMEN: Soft, nontender. LABORATORY DATA: Reveals a white count of 5.6, hemoglobin of 10, platelets of 231. BUN of 12, creat inine of 0.8. Urinalysis is noted. Procalcitonin is 0.21. Microbiology reveals the patient to have Gram-positive cocci in the blood. It is reported to be a Staph aureus by PNA FISH. The sensitivity is and culture results are not available. The patient also has a Gram-positive cocci from the arm w ound culture results. No further identification and sensitivity noted. Review of the orders reveals the patient to be on vancomycin 1 dose and patient is on Teflaro. Currently, adjusted for renal ins ufficiency. ASSESSMENT AND PLAN: A 66-year-old male with sepsis with Gram-positive cocci, Staphylococcus aureus bacteremia with a right arm Port-A-Cath infection and cellulitis with an infected venous thrombophleb itis on ultrasound consistent with thrombus and acute occlusive thrombus in the right brachial vein. By definition, he has endovasculitis and endocarditis and will need a transesophageal echo to rule o ut endocarditis and valve involvement. Will also need the Port-A-Cath removal. Currently on Teflaro . Awaiting for further identification and sensitivity of both the bacteremia, positive blood culture staphylococcus aureus and the wound culture Gram-positive cocci. Dr. Yumiko Jones's surgical consu ltation is reviewed. We are planning to take the patient to the OR tomorrow for removal of the Port- A-Cath. We also are waiting for repeat blood cultures, a sed rate, C-reactive protein and will carol nue Teflaro. May need to change to another antibiotic based on the culture and sensitivity and furth er information. I will follow closely with you. Case discussed with the patient at length this morn ing. Rodrigo Ch MD cc: [phone] TT: 09/18/2016 17:33:48 Confirmation # [id number] Dictation # [id number] mn
--- NOTE | 2016-09-18 21:20 | CP.PCM.PN ---
Subjective - Date & Time of Evaluation Date of Evaluation: 09/18/16 Time of Evaluation: 16:00 - Subjective Subjective: No acute events. Continues on IV abx per ID 12 ROS otherwise negative Objective - Vital Signs/Intake and Output Vital Signs (last 24 hours): Temp Pulse Resp BP Pulse Ox 98.6 F 103 H 18 132/80 96 09/18/16 17:00 09/18/16 17:00 09/18/16 17:00 09/18/16 17:00 09/18/16 17:00 Intake and Output: 09/18/16 09/19/16 18:59 06:59 Intake Total 360 Balance 360 - Medications Medications: Current Medications Acetaminophen (Tylenol 325mg Tab) 650 mg PO Q4 PRN PRN Reason: Fever >100.4 F Guaifenesin/Codeine Phosphate (Robitussin W/Codeine) 5 ml PO Q4H PRN PRN Reason: Cough and congestion Ceftaroline Fosamil 400 mg/ (Sodium Chloride) 100 mls @ 100 mls/hr IVPB Q12 ANABELL PRN Reason: Protocol Stop: 09/22/16 23:46 Last Admin: 09/18/16 09:09 Dose: 100 mls/hr Sodium Chloride (Sodium Chloride 0.9%) 1,000 mls @ 100 mls/hr IV .Q10H ANABELL - Labs Labs: 09/17/16 07:32 09/16/16 07:00 PT 12.1 Seconds (9.9-11.8) H 09/15/16 21:45 INR 1.12 (0.93-1.08) H 09/15/16 21:45 APTT 29.7 Seconds (23.7-30.8) 09/15/16 21:45 - Constitutional Appears: Well - Respiratory Exam Respiratory Exam: Clear to Ausculation Bilateral, NORMAL BREATHING PATTERN - Cardiovascular Exam Cardiovascular Exam: REGULAR RHYTHM, +S1, +S2. absent: Murmur - Back Exam Additional comments: RUE mediport site still warm to touch, erythemtous with purulent drainage evident Assessment and Plan - Assessment and Plan (Free Text) Plan: Mr. Hopson parul 66 y/o man with pmhx significant for NSLC who is admitted with RUE cellulitis, DVT and now found to be bacteremic. Patient currently stable. Plan on continuing IV abx per ID recommendations and BID lovenox 1mg/kg dosing. Plan on removing mediport tomorrow and MISBAH concomitantly to rule out endocarditis. Patient to be NPO after midnight. Patient's chemotherapy can not be given while he is getting treatment for bactermia and will likely be delayed in future. Sharad Medeiros MD Oncology Service
[2016-09-19] MEDS: Sodium Chloride 0.9% 1,000 ML IV SCH ×4 (01:03→20:00)
[2016-09-19] MEDS: Nafcillin 2 GM in Sodium Chloride 0.9% 100 ML IVPB SCH ×4 (09:57→23:20)
[2016-09-19] MEDS ORDERED: Bupivacaine 0.5% Inj(30mL) ONE (10:52)
[2016-09-19] MEDS ORDERED: Lidocaine 1% Inj (20ml) ONE (10:52)
[2016-09-19] MEDS ORDERED: Sodium Bicarbonate (8.4%) 50 Meq Syringe ONE (10:54)
[2016-09-19] MEDS ORDERED: Propofol 10 mg/ml Inj (20 ML) ONE (11:01)
[2016-09-19] MEDS ORDERED: Oxycodone/Acetaminophen 5/325 mg Tab PO PRN (11:37)
[2016-09-19] MEDS ORDERED: Magnesium Hydroxide Susp 30 ml UD PO PRN (11:38)
[2016-09-19] MEDS ORDERED: Lactated Ringer's 1,000 ML IV SCH (11:43)
[2016-09-19] MEDS ORDERED: HYDROmorphone 0.5 mg/0.5 ml ISec IVP PRN (11:43)
--- NOTE | 2016-09-19 11:47 | PCM.SURG1 ---
Surgeon's Initial Post Op Note - Surgeon's Notes Surgeon: Dayron Compliance Monitor: PGY3 Type of Anesthesia: IV Sedation, Local Pre-Operative Diagnosis: Infected Lifeport Operative Findings: see op note Post-Operative Diagnosis: Infected Lifeport Operation Performed: 1. Incision and Drainage. 2. Removal of infected Lifeport Specimen/Specimens Removed: Lifeport, culture of wound, culture of lifeport lumen Estimated Blood Loss: EBL {In ML}: 5 Blood Products Given: N/A Drains Used: No Drains Post-Op Condition: Good Date of Surgery/Procedure: 09/19/16 Time of Surgery/Procedure: 11:00
--- NOTE | 2016-09-19 16:32 | CON ---
DATE: 09/18/2016 HISTORY OF PRESENT ILLNESS: The patient is a 66-year-old male diagnosed with lung carcinoma. He is non-metastatic as per PET scan which was performed in the past. He is status post 11 treatments of r adiotherapy and 4 doses of chemotherapy. He traumatized his PICC line about a week or so after it wa s placed and developed cellulitis and edema of the right upper extremity at the site of the PICC line . The patient presented to the Emergency Room and was hospitalized. He is being followed by Dr. Omar ruiz and Dr. Munoz as well as infectious disease. The blood cultures had been negative up unti l this morning when 1 of the 2 cultures showed a Gram-positive cocci. PHYSICAL EXAMINATION: GENERAL: When seen, the patient was sitting up in a chair at bedside. His was present. He is awake, alert, and oriented. LUNGS: Distant, but clear. HEART: Regular. ABDOMEN: Soft and nontender. We discussed the findings of the blood culture. It would seem, unfortunately, the port will not be s aved because of the positive blood culture. The swelling in the right upper extremity has markedly s ubsided, so has the erythema around the area of the site. However, when palpated there was a bit of flocculence noted. I would consider perhaps with the removal of the port site I and D of the area sh ould be considered. We are continuing with intravenous antibiotics. He is currently on nafcillin 2 grams IV q. 6 hours. We will continue to follow the patient closely. Case is to be discussed with Lauren Medeiros as well as Dr. Ch. We are also planning a MISBAH in view of the positive blood cultu re to rule out endocarditis. Kb Morales MD cc: [phone] TT: 09/19/2016 16:31:28 Confirmation # [id number] Dictation # [id number] mn
--- NOTE | 2016-09-19 17:24 | CP.PCM.PN ---
Subjective - Date & Time of Evaluation Date of Evaluation: 09/19/16 Time of Evaluation: 08:15 - Subjective Subjective: Comfortable, not in distress, for removal of port today. Objective - Vital Signs/Intake and Output Vital Signs (last 24 hours): Temp Pulse Resp BP Pulse Ox 98 F 86 20 118/73 97 09/19/16 08:39 09/19/16 08:39 09/19/16 08:39 09/19/16 08:39 09/19/16 08:39 Intake and Output: 09/19/16 09/19/16 06:59 18:59 Intake Total 1120 Balance 1120 - Medications Medications: Current Medications Acetaminophen (Tylenol 325mg Tab) 650 mg PO Q4 PRN PRN Reason: Fever >100.4 F Guaifenesin/Codeine Phosphate (Robitussin W/Codeine) 5 ml PO Q4H PRN PRN Reason: Cough and congestion Sodium Chloride (Sodium Chloride 0.9%) 1,000 mls @ 100 mls/hr IV .Q10H [facility] Last Admin: 09/19/16 01:03 Dose: 100 mls/hr Nafcillin Sodium 2 gm/ Sodium (Chloride) 100 mls @ 100 mls/hr IVPB Q6 [facility] PRN Reason: Protocol Stop: 10/31/16 12:01 - Labs Labs: 09/17/16 07:32 09/16/16 07:00 PT 12.1 Seconds (9.9-11.8) H 09/15/16 21:45 INR 1.12 (0.93-1.08) H 09/15/16 21:45 APTT 29.7 Seconds (23.7-30.8) 09/15/16 21:45 - Constitutional Appears: Non-toxic, No Acute Distress - Head Exam Head Exam: NORMAL INSPECTION - ENT Exam ENT Exam: Mucous Membranes Moist - Neck Exam Neck Exam: absent: Meningismus - Respiratory Exam Respiratory Exam: Decreased Breath Sounds - Cardiovascular Exam Cardiovascular Exam: +S1, +S2 - GI/Abdominal Exam GI & Abdominal Exam: Soft. absent: Tenderness Assessment and Plan - Assessment and Plan (Free Text) Plan: Assessment Sepsis due to right upper arm port-a-cath site infection with cellulitis, probably with infected venous thrombophlebitis, with MSSA bacteremia recent diagnosis of lung cancer S/P chemotherapy and radiotherapay about a month ago S/P right upper arm port-a-cath placement about a month ago obesity with BMI 31 Plan switch Teflaro to Nafcillin and will continue to monitor clinically; follow up results of port removal and will await MISBAH Discussed with Dr. Padgett will follow clinically
--- NOTE | 2016-09-20 01:07 | PN ---
DATE: 09/19/2016 SUBJECTIVE: The patient is examined, sitting out of bed in a chair. He is comfortable, not in any a cute distress, status post removal of the port today. He has some pain after the port removal and go t some IV medicines, feeling better on IV antibiotics at this time. OBJECTIVE VITAL SIGNS: Stable. T-max is 98.4, pulse is 86, respirations 20, blood pressure is 118/73, pulse o x is 97% on room air. CURRENT MEDICATIONS: Reviewed. He is on Tylenol 650 mg p.o. q. 4 hours p.r.n., Robitussin 5 mL q. 4 hours p.r.n. He is on IV fluids with normal saline at 100 mL an hour. He is on nafcillin 2 g IV pi ggyback q. 6 hours. LABORATORY DATA: Reveals a white count of 5.6, hemoglobin 10.7, hematocrit 32, platelet count of 231 . Sodium is 133, K is 4.3, chloride is 102, CO2 of 23, BUN of 12, creatinine 0.8. Blood sugar is 89 . ____ is 12.1 and 1.12. APTT is within normal. PHYSICAL EXAMINATION: GENERAL: The patient is awake, alert, and oriented, in no acute distress. HEENT: Head is normocephalic, atraumatic. Conjunctivae pale. Sclerae are anicteric. Pupils are eq ually reactive to light and accommodation. There is no evidence of temporal muscle wasting. Examina tion of the oropharynx reveals no oropharyngeal lesions. Tongue is moist. NECK: Supple. There is no adenopathy. LUNGS: Clear to percussion and auscultation. Decreased breath sounds on the right side, posteriorly in the upper lobes. CARDIOVASCULAR SYSTEM: Reveals S1 and S2 to be normal. No gallop or murmur is heard. ABDOMEN: Soft, nontender. Bowel sounds are present. EXTREMITIES: Reveals no cyanosis, clubbing or edema. The patient is status post removal of the port on the right arm. ASSESSMENT NOTES AND PLAN: The patient has sepsis with history of right arm port site infection with cellulitis, probably with infected venous thrombophlebitis with methicillin-sensitive Staphylococcus aureus bacteremia, recent diagnosis of lung cancer, stage IIIB, on concurrent chemoradiation. The p atient ____ for more chemotherapy this week. It would be 3 weeks, but ____ radiation chemo will be o n hold for another week, to be resolved, the intensity of infection. Repeat blood cultures as of have been negative today. Status post removal of the right arm port. Obesity with BMI of 31. PLAN: The patient has been switched over to nafcillin and will continue to be monitored clinically f ollowing the port removal. The patient is going to get a MISBAH, which has been scheduled. I spoke to Dr. Edward Croft, who will be seeing him in the a.m. He will follow the patient clinically and make further recommendations once the repeat cultures are negative. The patient appears to be doing well. We will postpone the chemotherapy until the cultures are negative at 7 days, and then resume his ch emotherapy with carbo/Alimta. ____ the most recent followup scans in the radiation department and th e tumor appears to be significantly smaller. We will continue to monitor the patient very carefully. We will speak to ID. Blood work for a.m. has been requested. Roma Medeiros MD cc: [id number] TT: 09/20/2016 01:06:20 Confirmation # [id number] Dictation # [id number] naren
[2016-09-20] MEDS: Nafcillin 2 GM in Sodium Chloride 0.9% 100 ML IVPB SCH ×4 (05:42→23:23)
[2016-09-20] MEDS: Sodium Chloride 0.9% 1,000 ML IV SCH (06:23)
[2016-09-20 08:03] LABS: HEMATOCRIT 33.2 % (42.0-52.0); MEAN CELL VOLUME 90.5 fL (80.0-105.0); MEAN CORPUSCULAR HEMOGLOBIN 30.5 pg (25.0-35.0); MEAN CORPUSCULAR HGB CONC 33.7 g/dl (31.0-37.0); MEAN PLATELET VOLUME 8.4 fl (7.0-11.0); RED CELL DISTRIBUTION WIDTH 14.1 % (11.5-14.5); WHITE BLOOD COUNT 4.8 10^3/ul (4.5-11.0)
[2016-09-20 08:12] LABS: ALKALINE PHOSPHATASE 99 U/L (38-133); ALT/SGPT 47 U/L (7-56); AST/SGOT 38 U/L (15-59); BILIRUBIN,TOTAL 0.4 mg/dL (0.2-1.3); BLOOD UREA NITROGEN 10 mg/dL (7-21); CALCIUM 9.1 mg/dL (8.4-10.5); CARBON DIOXIDE 29 mmol/L (21-33); CHLORIDE 103 mmol/L (95-110); GFR AFRICAN-AMERICAN > 60; GLUCOSE,RANDOM 100 mg/dL (70-110); POTASSIUM 4.2 mmol/L (3.6-5.0); SODIUM 139 mmol/L (132-148)
--- NOTE | 2016-09-20 09:00 | CP.PCM.PN ---
Subjective - Date & Time of Evaluation Date of Evaluation: 09/20/16 Time of Evaluation: 08:00 - Subjective Subjective: General Surgery Progress Note for Dr. Padgett Patient seen and examined at bedside. No acute events overnight. Patient currently does not have any active complains and is ambulating well. Patient had radiation therapy yesterday. Denies headache, dizziness, fever, chills, shortness of breath, chest pain, nausea, vomiting, or diarrhea. Objective - Vital Signs/Intake and Output Vital Signs (last 24 hours): Temp Pulse Resp BP Pulse Ox 97.9 F 85 20 112/70 98 09/19/16 18:00 09/19/16 18:00 09/19/16 18:00 09/19/16 18:00 09/19/16 12:06 Intake and Output: 09/20/16 09/20/16 06:59 18:59 Intake Total 720 Balance 720 - Medications Medications: Current Medications Acetaminophen (Tylenol 325mg Tab) 650 mg PO Q4 PRN PRN Reason: Fever >100.4 F Enoxaparin Sodium (Lovenox) 75 mg SC Q12H [facility] PRN Reason: Protocol Guaifenesin/Codeine Phosphate (Robitussin W/Codeine) 5 ml PO Q4H PRN PRN Reason: Cough and congestion Sodium Chloride (Sodium Chloride 0.9%) 1,000 mls @ 100 mls/hr IV .Q10H [facility] Last Admin: 09/20/16 06:23 Dose: 100 mls/hr Nafcillin Sodium 2 gm/ Sodium (Chloride) 100 mls @ 100 mls/hr IVPB Q6 [facility] PRN Reason: Protocol Stop: 10/31/16 12:01 Last Admin: 09/20/16 05:42 Dose: 100 mls/hr Magnesium Hydroxide (Milk Of Magnesia) 30 ml PO DAILY PRN PRN Reason: Constipation Ondansetron HCl (Zofran Inj) 4 mg IVP ONCE PRN PRN Reason: Nausea/Vomiting Oxycodone/Acetaminophen (Percocet 5/325 Mg Tab) 1 tab PO Q4H PRN PRN Reason: Pain, moderate (4-7) Stop: 09/22/16 11:38 - Labs Labs: 09/20/16 07:30 09/20/16 07:30 PT 12.1 Seconds (9.9-11.8) H 09/15/16 21:45 INR 1.12 (0.93-1.08) H 09/15/16 21:45 APTT 29.7 Seconds (23.7-30.8) 09/15/16 21:45 - Constitutional Appears: Non-toxic, No Acute Distress - Head Exam Head Exam: NORMAL INSPECTION - Eye Exam Eye Exam: EOMI, Normal appearance - ENT Exam ENT Exam: Mucous Membranes Moist - Neck Exam Neck Exam: Normal Inspection - Respiratory Exam Respiratory Exam: absent: Respiratory Distress - Cardiovascular Exam Cardiovascular Exam: +S1, +S2 - GI/Abdominal Exam GI & Abdominal Exam: Soft - Extremities Exam Extremities Exam: Normal Capillary Refill Additional comments: Right upper arm with small amount of serosanguineous drainage. Spandage in place. No signs of infection appreciated. - Neurological Exam Neurological Exam: Alert, Awake, Oriented x3 - Psychiatric Exam Psychiatric exam: Normal Affect, Normal Mood - Skin Skin Exam: Warm Assessment and Plan - Assessment and Plan (Free Text) Assessment: 66 year old male with past medical history of lung CA currently on chemotherapy and radiation presents with infected right arm Lifeport s/p I&D and removal of infected Lifeport POD #1 Plan: - No leukocytosis, afebrile - Continue wound care - Continue IV Abx per ID - Pending MISBAH - Lovenox SC - Percocet Q4 prn - Discussed plan with Dr. Padgett
[2016-09-20] MEDS: Enoxaparin 80 mg Syringe SC SCH ×2 (09:51→21:30)
--- NOTE | 2016-09-20 12:40 | CP.PCM.PCO ---
Physician Communication Note - Physician Communication Note Physician Communication Note: hange in plan-LEAVE PACK IN(Oozing blood)
--- NOTE | 2016-09-20 14:27 | CON ---
DATE: 09/20/2016 INDICATIONS: Rule out SBE. HISTORY OF PRESENT ILLNESS: This is a 66-year-old male smoker with recently diagnosed lung cancer who was undergoing radiation therapy and chemotherapy. He had a PICC line inserted into his right arm. This became painful and swollen. Subsequently infection was found as well as thrombosis. He is admitted to the hospital. Blood cultures are positive for Staph sensitive to methicillin. He is on Lovenox and antibiotics. A MISBAH is requested. At this time, the patient is feeling better. His arm symptoms have improved. There is no chest pain, shortness of breath, orthopnea, PND, syncope, presyncope , lightheadedness, dizziness, vertigo, palpitations, edema, claudication, sputum production, hemoptysis, abdominal pain, nausea, vomiting, diarrhea, constipation, melena. PAST MEDICAL HISTORY: Notable for recent admission for infected PICC line with sepsis, rule out endocarditis. He has lung cancer recently diagnosed. He is a smoker who stopped recently. There is no history of cardiac problems, diabetes , stroke, TIA or gout. CURRENT MEDICATIONS: Include Lovenox, magnesium, nafcillin, oxycodone, Tylenol , vancomycin, Zofran, Robitussin with codeine. ALLERGIES: There are no known medication allergies. SOCIAL HISTORY: He is a former smoker. He does not drink alcohol significantly. He is ambulatory. He is a retired construction electrician. FAMILY HISTORY: Noncontributory. REVIEW OF SYSTEMS: A 10-point review of systems is otherwise unremarkable except as noted above. PHYSICAL EXAMINATION: GENERAL: He is a well-developed male sitting on his bed on 3R, in no acute distress. VITAL SIGNS: Unremarkable. His pulse is 88. He is afebrile. Blood pressure 116/76, respirations 20, O2 sat 97%. HEENT: Reveals no neck vein distention, thyromegaly, or carotid bruits. Mucous membranes are moist. Conjunctivae are pink. NECK: Supple. LUNGS: Mccarty clear. HEART: Revealed normal first and second heart sounds. ABDOMEN: Soft, bowel sounds are present. No mass, organomegaly, tenderness, rebound, guarding, CVA tenderness or palpable abdominal aortic aneurysm. EXTREMITIES: Revealed no lower extremity edema, cyanosis or clubbing. Right arm bandaged at a former PICC line site. NEUROLOGIC: Awake, alert and oriented. PSYCHIATRIC: Normal as to mood and affect. SKIN: Warm and dry. No rash or cellulitis. LABORATORY AND IMAGING: An upper extremity ultrasound revealed acute occlusive thrombus in the right brachial vein. Lower extremity ultrasound revealed no evidence of DVT. White count normal, hemoglobin 11.2, hematocrit 33.2, platelet count normal. PT 12.1, INR 1.1, PTT 29.7. Blood gas is noted. Electrolytes, BUN, creatinine, blood sugar, liver function tests unremarkable. IMPRESSION: The patient is a 66-year-old former smoker with a history of lung cancer, getting radiation therapy and chemotherapy, developed infection of a PICC line in the right upper extremity with positive blood cultures for methicillin-sensitive Staphylococcus aureus. A MISBAH is requested. I will order a TTE for today and arrange a MISBAH for tomorrow if the TTE does not show vegetations. I will order an EKG as well. We will make additional recommendations based on the echocardiographic studies. In the meantime, he is being followed by ID, oncology, interventional radiology, surgery and radiation oncology. Ethan Rinaldi MD cc: [phone] TT: 09/20/2016 14:27:02 Confirmation # [id number] Dictation # [id number] cash LUCERO
--- NOTE | 2016-09-20 22:30 | CARD ---
APPROVED REPORT EKG Measurement Heart [id number] <Conclusion> Normal sinus rhythm Left axis deviation Septal infarct, age undetermined Abnormal ECG
--- NOTE | 2016-09-20 23:50 | PN ---
DATE: 09/20/2016 The patient is in room 369, bed 1. 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 Had a CT-guided biopsy confirming it to be an adenocarcinoma, started on concurrent chemoradiation. Through the midst of radiation, lam martínez had 1 cycle of chemotherapy and would have been due for his second cycle of this week when he got a dmitted to the hospital with sepsis related to his PICC line in his right arm that was accidentally h it when he was trying to back up his car/truck and he hurt his arm in that process when he had an acc ident. This became painful and swollen. Subsequently, the patient was admitted to the hospital and found to have a fever with chills, and also was noted to have thrombosis in addition to his celluliti s. Blood cultures are positive for Staph aureus and sensitive and cultures from the port site wound culture was positive for Staph aureus, since then has been on Lovenox and antibiotics. The pat ient needs to have a MISBAH done in addition to regular echocardiogram to decide which direction and how long the antibiotics need to be given. SUBJECTIVE: The patient is feeling better. His abdominal pain and symptoms and chills have disappea red. No chest pain, shortness of breath, orthopnea, PND, syncope, lightheadedness, dizziness, vertig o, palpitations, edema or claudication, sputum production, hemoptysis, abdominal pain, nausea, vomiti ng, diarrhea or constipation. PAST MEDICAL HISTORY: Notable for the finding that he had stage IIIB nonsmall cell carcinoma of the lung for which he had a port put in, following which he had 1 cycle of Alimta, carboplatin based chem otherapy. The patient is a smoker who quit smoking recently. No history of cardiac problems, diabet es, stroke, TIA. CURRENT MEDICATIONS: Include Lovenox, magnesium, , oxycodone, Tylenol, vancomycin, Zofran, Jose Ramon tussin with codeine. ALLERGIES: The patient has no known allergies. PHYSICAL EXAMINATION: GENERAL: The patient is awake, alert, and oriented, sitting out of bed in the chair in no acute dist ress. VITAL SIGNS: Stable. T-max is 98.4, pulse is 88, blood pressure is 116/77, respirations 20, O2 sat is 97% on room air. HEENT: Head is normocephalic and atraumatic. Conjunctivae pale. Sclerae are anicteric. Pupils are equally reactive to light and accommodation. Examination of the oropharynx reveals the patient has lost several of his teeth, there are partials, no oropharyngeal lesions are noted. NECK: Supple. There is no adenopathy. No jugular venous distention noted. LUNGS: Clear to percussion and auscultation. HEART: Reveals S1 and S2 to be normal. No gallop or murmur is heard. ABDOMEN: Soft, nontender. Bowel sounds are present. Liver and spleen are not tender nor are they p alpable. There is no CVA tenderness. EXTREMITIES: Reveals no cyanosis, clubbing or edema. Previously noted edema, right upper extremity with drainage. He has gone down dramatically. The patient has packing in the open wound where the p ort was. The port tip had been sent for cultures, which have not shown anything yet. NEUROLOGIC: Higher functions are normal. No focal deficits are noted on neurologic exam. PSYCHIATRIC: Reveals the patient to have normal affect and mood. SKIN: Warm and dry. No skin lesions are noted. LABORATORY DATA: Imaging: The patient had an upper extremity ultrasound, which showed acute occlusi ve thrombus in the right brachial vein. Lower extremity ultrasound was negative for DVT. bloo d count reveals a hemoglobin of 11.2, white count is normal. Hematocrit 33.2, platelet count is norm al. PT and INR are within normal range. The blood gas is also noted. Electrolytes, BUN and creatin ine, blood sugar, and liver functions are all unremarkable. ASSESSMENT, NOTES AND PLAN: The patient has Staph aureus, methicillin-sensitive Staphylococcus aureu s in the blood culture. Initial culture of 09/14/2016, 09/17/2016 and 09/18/2016 blood cultures are negative. The tip of the catheter was sent for culture; results are pending. We will continue antib iotics for now, and the patient from my understanding will have to get terminal gauger antibiotics for a to kimberly period of 6 weeks to cover Staph aureus. Repeat cultures so far have been negative, dated 2016. I spoke with Dr. Neff this morning, our ID specialist, to get some in which direction tiffany martínez should go as he is still on active therapy directed towards his lung cancer. If the repeat culture s are negative at 1 week then probably cautiously go have the treatment with the understanding that lam martínez may need to complete 6 weeks of therapy of IV antibiotics. I told them to hold off on placing the PICC line until we get the clearance from ID, so that we do not have any issues with contamination of the PICC line as well. We will talk with to all the team members involved in his care and make appr opriate recommendations. Routine post exam instructions have been given to the patient. I spoke to the patient and his in great detail. Roma Medeiros MD cc: [id number] TT: 09/20/2016 23:49:25 Confirmation # [id number] Dictation # [id number] mn
[2016-09-21] MEDS: Nafcillin 2 GM in Sodium Chloride 0.9% 100 ML IVPB SCH ×4 (05:53→23:39)
[2016-09-21] MEDS: Sodium Chloride 0.9% 1,000 ML IV SCH ×2 (05:53→13:07)
--- NOTE | 2016-09-21 07:25 | CARD ---
APPROVED REPORT EXAM: Two-dimensional and M-mode echocardiogram with Doppler and color Doppler. INDICATION R/O SBE 2D DIMENSIONS Left Atrium (2D)3.7 (1.6-4.0cm)IVSd1.2 (0.7-1.1cm) LVDd5.2 (3.9-5.9cm)PWd1.3 (0.7-1.1cm) LVDs3.6 (2.5-4.0cm)FS (%) 31.1 % LVEF (%)58.5 (>50%) M-Mode DIMENSIONS Aortic Root4.30 (2.2-3.7cm)Aortic Cusp Exc.2.80 (1.5-2.0cm) Aortic Valve AoV Peak Fjftmwdx885.0cm/Angelica Peak GR.12mmHgAI P 1/2 Tdxw057ma Mitral Valve MV E Xwdnwire39.1cm/sMV A Drlntnxc54.9cm/sE/A ratio0.8 TDI Lateral E' Peak V12.80cm/sMedial E' Peak V7.31cm/sE/Lateral E'6.0 E/Medial E'10.5 Pulmonary Valve PV Peak Flwecvsg19.1cm/sPV Peak Grad.3mmHg Tricuspid Valve TR Peak Hyubcqoe275dx/sRAP PQROJALR10glPcID Peak Gr.23mmHg PCRN20hzEq LEFT VENTRICLE The left ventricle is normal size. There is mild concentric left ventricular hypertrophy. The left ventricular function is normal. The left ventricular ejection fraction is within the normal range. There is normal LV segmental wall motion. RIGHT VENTRICLE The right ventricle is normal size. The right ventricular systolic function is normal. ATRIA The left atrium size is normal. The right atrium size is normal. The interatrial septum is intact with no evidence for an atrial septal defect. AORTIC VALVE The aortic valve is normal in structure. There is trace to mild aortic regurgitation. There is no aortic valvular stenosis. MITRAL VALVE The mitral valve is normal in structure. There is no mitral valve regurgitation noted. TRICUSPID VALVE The tricuspid valve is normal in structure. There is mild tricuspid regurgitation. PULMONIC VALVE The pulmonary valve is normal in structure. GREAT VESSELS The aortic root is normal in size. The IVC is normal in size and collapses >50% with inspiration. PERICARDIAL EFFUSION There is no pleural effusion. There is no pericardial effusion. <Conclusion> Normal chamber size. Mild concentric LVH. Normal LV systsolic function. Trace to mild AI. Mild TR. No vegetation seen.
--- NOTE | 2016-09-21 08:10 | OP ---
PROCEDURE DATE: 09/19/2016 Room 369, bed 1. SURGEON: Estiven Padgett M.D. PHYSICAL THERAPIST: Irwin Curran DO, PGY-2. ANESTHESIOLOGIST: Dr. Joyce. ANESTHESIA: IV sedation -- Marcaine 0.5-18 mL. PREOPERATIVE DIAGNOSES: 1. Infected right arm Port-A-Cath. 2. Gram-positive bacteremia. 3. Carcinoma of the lung. POSTOPERATIVE DIAGNOSES: 1. Infected right arm Port-A-Cath. 2. Gram-positive bacteremia. 3. Carcinoma of the lung. PROCEDURE: 1. Removal of a Port-A-Cath. 2. Incision and drainage of a right arm abscess. OPERATIVE INDICATION: The patient is a 66-year-old male who has been recently diagnosed wi th lung cancer and has had a right arm port placed by Dr. Fabrizio Nevarez ([facility] interve ntionalist). He had 1 course of chemotherapy treatment, developed a large swelling with pain in his right arm and has subsequently developed gram-positive cocci in the blood. He has been admitted. He is getting antibiotic and this surgeon has been referred for removal of the Port-A-Cath. The wound has been expressed and cultures taken and confirmed the same organism of gram-positive Staphylococci as in the blood and the patient is still awaiting a transesophageal echo to determine if there are an y vegetations with the bacteremia. The discussion was held with the patient regarding removal of the port and he wholeheartedly agrees. Due to the significant amount of swelling, redness and pain, he prefers to have some sort of anesthesia to go with the local that we will provide. Risks, benefits a nd alternatives with their anticipated outcomes were discussed with the patient and he signs the info rmed consent. OPERATIVE NOTE: The patient is brought to the operating room from the same day holding area. He und ergoes timeout procedure and is identified by his wrist band. He is placed on the table in a supine manner. His arm was placed extended on an ironing board table to the right of the operating gurney a nd he undergoes intravenous oxygenation monitoring and sedation by the anesthesiologist. The right arm is prepped with Hibiclens, chlorhexidine preparation and is then aseptically draped. A field block of bupivacaine 0.5% is employed to completely encompass the area and then transversely across the arm at the level of the most swelling and the previous incision, the skin is infiltrated w hich will reduce the amount of bleeding. Incision is made with sharp dissection down through the subcutaneous tissues and exposing the port be low. Surprisingly, no big accumulation of fluid is encountered; however, the port is exposed, cultur ed in the subcutaneous pocket and so labelled, submitted to pathology for aerobic and anaerobic sensi tivities. The port is elevated into the incision. A pursestring suture of 3-0 Polysorb is placed around the en try site into the brachial vein and the port is removed and the pursestring suture closed. The operating surgeon now compresses the diaphragm of the port and a long thrombus is seen oozing out from the lumen of the catheter and this is cultured as well. On the tip of this thrombus is a white plug and this is specifically cultured and submitted to pathology for examination. The port is separately submitted for gross examination. The lumen of the port appears to be clean. The wound is now lavaged with saline. Hemostasis is maintained by compression and cautery where need ed and the wound is then packed with 1 inch iodoform gauze and a compression dressing of 4 x 4 gauze. The patient is now awakened, transported to the recovery room in a satisfactory condition. Sponge, i nstrument and suture count were verified as correct at the end of the procedure. Estimated blood los s during this procedure was less than 10 mL of blood. This dictation will be electronically signed without being read. The surgical scrub technologist was present throughout the procedure from beginning to end and was extremely h elpful in providing exposure and performing a significant amount of the dissection involved in the re moval of this port Estiven Padgett MD cc: [phone] TT: 09/21/2016 08:10:25 tn
--- NOTE | 2016-09-21 09:16 | CP.PCM.PN ---
Subjective - Date & Time of Evaluation Date of Evaluation: 09/21/16 Time of Evaluation: 08:00 - Subjective Subjective: General Surgery Progress Note for Dr. Padgett Patient seen and examined at bedside. No acute events overnight. Patient currently does not have any active complains. Patient is NPO for MISBAH today. Denies headache, dizziness, fever, chills, shortness of breath, chest pain, nausea, vomiting, or diarrhea. Objective - Vital Signs/Intake and Output Vital Signs (last 24 hours): Temp Pulse Resp BP Pulse Ox 98.5 F 88 19 117/74 97 09/21/16 08:26 09/21/16 08:26 09/21/16 08:26 09/21/16 08:26 09/21/16 08:26 Intake and Output: 09/21/16 09/21/16 06:59 18:59 Intake Total 1740 Balance 1740 - Medications Medications: Current Medications Acetaminophen (Tylenol 325mg Tab) 650 mg PO Q4 PRN PRN Reason: Fever >100.4 F Enoxaparin Sodium (Lovenox) 75 mg SC Q12H [facility] PRN Reason: Protocol Last Admin: 09/20/16 21:30 Dose: 75 mg Guaifenesin/Codeine Phosphate (Robitussin W/Codeine) 5 ml PO Q4H PRN PRN Reason: Cough and congestion Sodium Chloride (Sodium Chloride 0.9%) 1,000 mls @ 100 mls/hr IV .Q10H [facility] Last Admin: 09/21/16 05:53 Dose: 100 mls/hr Nafcillin Sodium 2 gm/ Sodium (Chloride) 100 mls @ 100 mls/hr IVPB Q6 [facility] PRN Reason: Protocol Stop: 10/31/16 12:01 Last Admin: 09/21/16 05:53 Dose: 100 mls/hr Magnesium Hydroxide (Milk Of Magnesia) 30 ml PO DAILY PRN PRN Reason: Constipation Ondansetron HCl (Zofran Inj) 4 mg IVP ONCE PRN PRN Reason: Nausea/Vomiting Oxycodone/Acetaminophen (Percocet 5/325 Mg Tab) 1 tab PO Q4H PRN PRN Reason: Pain, moderate (4-7) Stop: 09/22/16 11:38 - Labs Labs: 09/20/16 07:30 09/20/16 07:30 PT 12.1 Seconds (9.9-11.8) H 09/15/16 21:45 INR 1.12 (0.93-1.08) H 09/15/16 21:45 APTT 29.7 Seconds (23.7-30.8) 09/15/16 21:45 - Constitutional Appears: Non-toxic, No Acute Distress - Head Exam Head Exam: ATRAUMATIC, NORMAL INSPECTION, NORMOCEPHALIC - Eye Exam Eye Exam: EOMI, Normal appearance - ENT Exam ENT Exam: Mucous Membranes Moist - Neck Exam Neck Exam: Normal Inspection - Respiratory Exam Respiratory Exam: NORMAL BREATHING PATTERN. absent: Respiratory Distress - Cardiovascular Exam Cardiovascular Exam: +S1, +S2 - Extremities Exam Additional comments: Right upper arm with small amount of dried serosanguineous drainage. Packing in place. Gauze changed. - Neurological Exam Neurological Exam: Alert, Awake, Oriented x3 - Psychiatric Exam Psychiatric exam: Normal Affect, Normal Mood - Skin Skin Exam: Warm Assessment and Plan - Assessment and Plan (Free Text) Assessment: 66 year old male with past medical history of lung CA currently on chemotherapy and radiation presents with infected right arm Lifeport s/p I&D and removal of infected Lifeport POD #2 Plan: - Pt remains no leukocytosis, afebrile - Wound packing left in the wound, will remove at a later time - Continue IV Abx per ID - Pending MISBAH results - Lovenox SC - Percocet Q4 prn - Discussed plan with Dr. Padgett
[2016-09-21] MEDS: Enoxaparin 80 mg Syringe SC SCH ×2 (10:56→21:15)
[2016-09-21] MEDS ORDERED: Midazolam 2 MG/2 ML VIAL ONE (11:43)
[2016-09-21] MEDS ORDERED: Naloxone 0.4 mg/ml Inj (Adult) ONE (11:43)
[2016-09-21] MEDS ORDERED: Flumazenil 0.1 mg/ml Inj (5ml) IVP ONE (11:43)
[2016-09-21] MEDS ORDERED: Midazolam 2 MG/2 ML VIAL IV ONE (11:45)
--- NOTE | 2016-09-21 12:45 | CARD ---
APPROVED REPORT EXAM: Transesophageal echocardiogram with color flow Doppler. INDICATION ENDOCARDITIS Reason For Test : Rule out endocarditis. PROCEDURE After obtaining informed consent, patient underwent transesophageal echo in the Echo Lab. Type of Sedation : Conscious Sedation Sedation was achieved with Versed, Fentanyl intravenously. The MISBAH was performed without complications. Throughout the procedure, the blood pressure, pulse oximetry, cardiac rhythm, and rate were monitored. The patient tolerated the procedure without adverse effects. Recovery from conscious sedation was uneventful and vital signs were stable. LEFT VENTRICLE The left ventricle is normal size. There is normal left ventricular wall thickness. The left ventricular function is normal. The left ventricular ejection fraction is within the normal range. RIGHT VENTRICLE The right ventricle is normal size. The right ventricular systolic function is normal. ATRIA The left atrium size is normal. The right atrium size is normal. The interatrial septum is intact with no evidence for an atrial septal defect. AORTIC VALVE The aortic valve is normal in structure. No aortic regurgitation is present. There is no aortic valvular stenosis. There is no aortic valvular vegetation. MITRAL VALVE The mitral valve is normal in structure. No vegetation seen. Mitral regurgitation is mild. TRICUSPID VALVE The tricuspid valve is normal in structure. No vegetation seen. There is no tricuspid valve regurgitation noted. PULMONIC VALVE The pulmonary valve is normal in structure. GREAT VESSELS The aortic root is normal in size. The IVC is normal in size and collapses >50% with inspiration. <Conclusion> Normal chamber size. Normal LV systolic function. Mild MR. No valvular vegetations seen.
--- NOTE | 2016-09-21 14:58 | PN ---
DATE: 09/21/2016 SUBJECTIVE: The patient is seen lying in bed. He is comfortable. He is scheduled for a transesopha geal echocardiogram later today. He does have some tenderness at the incision site where his chemoth erapy port had been removed earlier in the week. He remains afebrile. Followup cultures are negativ e. CURRENT MEDICATIONS: Remain Lovenox, nafcillin, Percocet, Tylenol. OBJECTIVE: GENERAL: He is a middle-aged man who appears comfortable at the present time. VITAL SIGNS: Blood pressure 122/76 with a pulse of 76, respirations are 14. He is afebrile. HEENT: No JVD. CHEST: A few scattered rhonchi. HEART: No pathologic murmur or gallops noted. ABDOMEN: Soft, nontender, normoactive bowel sounds. EXTREMITIES: No edema. IMPRESSION: 1. Recent Staphylococcus bacteremia, likely due to infected chemotherapy port. 2. Recently diagnosed lung cancer on chemotherapy and radiation. RECOMMENDATIONS: A transesophageal echocardiogram will be performed later today to exclude any evide nce of valvular vegetations. If these are present, a prolonged antibiotic course will be necessary. Further recommendations will be made based upon those results. Venkat Croft MD cc: [phone] TT: 09/21/2016 14:58:37 Confirmation # [id number] Dictation # [id number]
[2016-09-21 18:10] VITALS: RESP 20
[2016-09-21] MEDS ORDERED: Sodium Chloride 0.9% 50 ML IV SCH (20:58)
--- NOTE | 2016-09-21 21:13 | PN ---
DATE: 09/21/2016 SUBJECTIVE: The patient is a 66-year-old male admitted via the Emergency Room for severe cellulitis with an infected Port-A-Cath suspected of the right arm, waiting for cultures to be done. The patien t did have positive blood cultures Staph aureus for which he is being treated with IV antibiotics as per Dr. Ch and Dr. Neff with the patient now status post transesophageal echocardiogram repo rted as negative for vegetations. The patient is otherwise resting comfortably with family at the bedside, in no acute distress. Papa nue IV antibiotic protocol. 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 PHYSICAL EXAMINATION: VITAL SIGNS: Temperature 98.2, pulse 92, respirations 20, blood pressure 121/81, pulse ox 98%. HEENT: Unremarkable. NECK: Supple. HEART: Tachy rate, regular rhythm. LUNGS: Clear. ABDOMEN: Soft, nontender. EXTREMITIES: Dressing dry and intact in the right upper extremity, status post port removal. NEUROLOGIC: Awake, alert and oriented. SKIN: Otherwise, warm, dry and clear. LABORATORY DATA: The patient's labs were done yesterday and will be repeated tomorrow. ASSESSMENT: Sepsis of the right upper extremity with cellulitis with venous thrombophlebitis, methic illin-sensitive Staph aureus bacteremia. Chronic cough, lung cancer. PLAN: Plan for this patient is to continue his radiation. He has completed 16 of 30 treatments to d ate with IV antibiotics to continue as per Dr. Tawanda Ch in approximately 4-[address] Adilson Nevarez to determine whether a port or a PICC line would be recommended for this patient. We will monitor clinically and with labs. Lawrence Munoz MD cc: [phone] TT: 09/21/2016 21:12:13 Confirmation # [id number] Dictation # [id number]
--- NOTE | 2016-09-21 21:20 | CP.PCM.PN ---
Subjective - Date & Time of Evaluation Date of Evaluation: 09/21/16 Time of Evaluation: 10:50 - Subjective Subjective: Comfortable, afebrile, no diarrhea, less arm pain. Objective - Vital Signs/Intake and Output Vital Signs (last 24 hours): Temp Pulse Resp BP Pulse Ox 97.9 F 85 20 112/70 98 09/19/16 18:00 09/19/16 18:00 09/19/16 18:00 09/19/16 18:00 09/19/16 12:06 Intake and Output: 09/20/16 09/20/16 06:59 18:59 Intake Total 720 Balance 720 - Medications Medications: Current Medications Acetaminophen (Tylenol 325mg Tab) 650 mg PO Q4 PRN PRN Reason: Fever >100.4 F Enoxaparin Sodium (Lovenox) 75 mg SC Q12H [facility] PRN Reason: Protocol Guaifenesin/Codeine Phosphate (Robitussin W/Codeine) 5 ml PO Q4H PRN PRN Reason: Cough and congestion Sodium Chloride (Sodium Chloride 0.9%) 1,000 mls @ 100 mls/hr IV .Q10H [facility] Last Admin: 09/20/16 06:23 Dose: 100 mls/hr Nafcillin Sodium 2 gm/ Sodium (Chloride) 100 mls @ 100 mls/hr IVPB Q6 [facility] PRN Reason: Protocol Stop: 10/31/16 12:01 Last Admin: 09/20/16 05:42 Dose: 100 mls/hr Magnesium Hydroxide (Milk Of Magnesia) 30 ml PO DAILY PRN PRN Reason: Constipation Ondansetron HCl (Zofran Inj) 4 mg IVP ONCE PRN PRN Reason: Nausea/Vomiting Oxycodone/Acetaminophen (Percocet 5/325 Mg Tab) 1 tab PO Q4H PRN PRN Reason: Pain, moderate (4-7) Stop: 09/22/16 11:38 - Labs Labs: 09/17/16 07:32 09/16/16 07:00 PT 12.1 Seconds (9.9-11.8) H 09/15/16 21:45 INR 1.12 (0.93-1.08) H 09/15/16 21:45 APTT 29.7 Seconds (23.7-30.8) 09/15/16 21:45 - Constitutional Appears: Non-toxic, No Acute Distress - Head Exam Head Exam: NORMAL INSPECTION - Neck Exam Neck Exam: absent: Meningismus - Respiratory Exam Respiratory Exam: Decreased Breath Sounds - Cardiovascular Exam Cardiovascular Exam: +S1, +S2 - GI/Abdominal Exam GI & Abdominal Exam: Soft. absent: Tenderness - Extremities Exam Additional comments: right upper arm with dressings in place Assessment and Plan - Assessment and Plan (Free Text) Plan: Assessment Sepsis due to right upper arm port-a-cath site infection with cellulitis, with infected venous thrombophlebitis (endovascular infection), with MSSA bacteremia recent diagnosis of lung cancer S/P chemotherapy and radiotherapay about a month ago S/P right upper arm port-a-cath placement about a month ago obesity with BMI 31 Plan continue Nafcillin and will continue to monitor clinically; blood cx on 2016 are negative; MISBAH does not show vegetations Discussed with Dr. Medeiros - patient should get 4-6 weeks of antibiotics Patient may resume chemotherapy with negative blood cx while on antibiotics will continue to follow clinically
[2016-09-22] MEDS: Nafcillin 2 GM in Sodium Chloride 0.9% 100 ML IVPB SCH ×2 (05:15→11:38)
--- NOTE | 2016-09-22 07:06 | CP.PCM.PCO ---
Physician Communication Note - Physician Communication Note Physician Communication Note: c/s Pocket S Aureus/PAC Lumen No growth/MISBAH No Vegs
[2016-09-22 07:49] LABS: ADD MANUAL DIFF? NO
[2016-09-22 07:52] LABS: BASO # 0.05 K/mm3 (0.0-2.0); EOS # 0.1 (0.0-0.7); GRAN # 3.34 (1.4-6.5); GRAN % 66.1 % (50.0-68.0); HEMATOCRIT 35.6 % (42.0-52.0); LYMPH % 18.8 % (22.0-35.0); MEAN CORPUSCULAR HEMOGLOBIN 30.9 pg (25.0-35.0); MEAN PLATELET VOLUME 8.5 fl (7.0-11.0); MONO # 0.7 (0.1-0.6); MONO % 13.1 % (1.0-6.0); PLATELET COUNT 374 10^3/uL (120.0-450.0); RED CELL DISTRIBUTION WIDTH 14.6 % (11.5-14.5); WHITE BLOOD COUNT 5.1 10^3/ul (4.5-11.0)
[2016-09-22 08:05] LABS: ALKALINE PHOSPHATASE 96 U/L (38-133); ALT/SGPT 48 U/L (7-56); AST/SGOT 46 U/L (15-59); BILIRUBIN,TOTAL 0.8 mg/dL (0.2-1.3); BLOOD UREA NITROGEN 10 mg/dL (7-21); CALCIUM 9.5 mg/dL (8.4-10.5); CARBON DIOXIDE 28 mmol/L (21-33); CHLORIDE 103 mmol/L (98-107); GFR AFRICAN-AMERICAN > 60; GLUCOSE,RANDOM 103 mg/dL (70-110); POTASSIUM 3.8 mmol/L (3.6-5.0); SODIUM 140 mmol/L (132-148); TOTAL PROTEIN 7.7 g/dL (5.8-8.3)
[2016-09-22] MEDS ORDERED: Lidocaine 2% Inj (20ml) ONE (09:15)
[2016-09-22] MEDS: Enoxaparin 80 mg Syringe SC SCH ×2 (10:45→22:32)
[2016-09-22] MEDS ORDERED: SODIUM CHLORIDE 0.9% IV STA (14:27)
[2016-09-22] MEDS ORDERED: DAPTOMYCIN IV STA (14:27)
--- NOTE | 2016-09-22 16:34 | PN ---
DATE: 09/22/2016 The patient seen earlier this morning in 369, bed 1. No fevers, no chills. He is tolerating his ant ibiotic well. PHYSICAL EXAMINATION: VITAL SIGNS: Temperature is 98, blood pressure is 116/70, respiratory rate of 16. HEENT: Unremarkable. NECK: Supple. LUNGS: Decreased breath sounds. HEART: Normal S1, S2. ABDOMEN: Soft. LABORATORY EXAMINATION: Reveals a white count of 5.1, hemoglobin of 12, platelets of 374, BUN of 10, creatinine of 1.0. Microbiology reveals the blood cultures from the arm are Staph aureus, it is UT C of 1, sensitive Staphylococcus sensitive to oxacillin. The blood cultures from 09/18 are no growth . ASSESSMENT AND PLAN: A 66-year-old male with sepsis with a right upper arm Port-A-Cath site infectio n with sensitive Staphylococcus aureus bacteremia and sensitive Staphylococcus aureus cellulitis and infected venous ____ and thrombophlebitis with endovascular infection with methicillin-sensitive Stap hylococcus aureus bacteremia and status post history of diagnosis of lung cancer, chemotherapy and ra diation a month ago. Continue nafcillin and monitor clinically. Blood cultures from 09/18 are negat daniel. Should get 4-6 weeks of antibiotics. May resume chemotherapy. Dr. Neff's note clearly states 4-6 weeks of antibiotics from the time the cultures become negative. Recommend a CBC, SMA-18, sed r ate, C-reactive protein. The patient is tolerating nafcillin well. Rodrigo Ch MD cc: [phone] TT: 09/22/2016 16:33:40 Confirmation # [id number] Dictation # [id number]
--- NOTE | 2016-09-22 17:27 | VASCULAR ---
PROCEDURE: Ultrasound and fluoroscopically placed left upper extremity PICC line. HISTORY: Infected port. Long-term IV antibiotics. Also receiving chemotherapy for lung CA. Needs PICC line. PHYSICIAN(S): Fabrizio Nevarez MD. TECHNIQUE: The relative risks and indications of the procedure were explained to the patient and consent obtained. The patient was placed supine on the arteriogram table and the left arm prepped and draped in the usual sterile fashion. A tourniquet was applied to the left axilla. 1% Xylocaine was used to anesthetize the skin and soft tissues at the puncture site above the elbow. The left basilic vein was punctured under direct ultrasound guidance with a micropuncture set. A 0.018 guidewire was advanced centrally and used to measure the length to the SVC/RA junction. A 5 Thai dual lumen PICC line 49 cm long was advanced to the SVC/RA junction. The catheter was flushed and secured. The patient tolerated the procedure well. IMPRESSION: 1. Ultrasound and fluoroscopically placed left upper extremity PICC line. A 5 Thai dual lumen PICC line 49 cm long was advanced to the SVC/RA junction.
[2016-09-22 19:23] VITALS: BP 134/82; PULSE 88; TEMP 98.1; O2SAT 98
--- NOTE | 2016-09-22 22:38 | PN ---
DATE: 09/22/[address] Medeiros. SUBJECTIVE: The patient is a 66-year-old male seen sitting up in bed, status post placement of a PIC C line as per Dr. Fabrizio Nevarez earlier today for continuation of his IV antibiotics as per Dr. Luz mcneil. He will also resume his chemotherapy with Dr. Medeiros. Dr. Ch reports patient to be on antibiotics for 4-6 weeks. He is otherwise without complaint today. OBJECTIVE: VITAL SIGNS: Temperature 98.1, pulse 88, respirations 20, blood pressure 134/82, pulse ox 98%. HEENT: Unremarkable. NECK: Supple. HEART: Regular rate. LUNGS: Clear. ABDOMEN: Soft, nontender. EXTREMITIES: No edema. SKIN: Warm, dry and clear. NEUROLOGIC: Awake, alert, and oriented x 3. LABORATORY DATA: The patient's labs were done. White blood cell count of 5.1, hemoglobin 12.1, daisy tocrit 35.6, platelet count 374,000 with a chem metabolic panel completely within normal range. ASSESSMENT: Cellulitis, bacteremia, infected port, thrombophlebitis. PLAN: Plan for this patient is to continue nafcillin as per Dr. Ch's recommendations 4 - 6 w eeks to be continued with arrangements to be made as per his insurance with the patient to be dischar [facility] once he is stable and the insurance allows his treatment to be continued as an outpatient. With this we will continue present medical regimen in the interim. Lawrence Munoz MD cc: [phone] TT: 09/22/2016 22:37:28 Confirmation # [id number] Dictation # [id number] andre
[2016-09-23] MEDS: Enoxaparin 80 mg Syringe SC SCH (09:25)
[2016-09-23] MEDS ORDERED: SODIUM CHLORIDE 0.9% IV SCH (10:00)
[2016-09-23] MEDS ORDERED: DAPTOMYCIN IV SCH (10:00)
[2016-09-23 12:45] LABS: HEMATOCRIT 34.4 % (42.0-52.0); MEAN CORPUSCULAR HEMOGLOBIN 30.7 pg (25.0-35.0); MEAN CORPUSCULAR HGB CONC 33.7 g/dl (31.0-37.0); MEAN PLATELET VOLUME 8.5 fl (7.0-11.0); RED CELL DISTRIBUTION WIDTH 14.9 % (11.5-14.5); WHITE BLOOD COUNT 4.8 10^3/ul (4.5-11.0)
--- NOTE | 2016-09-23 16:39 | CP.PCM.PN ---
Subjective - Date & Time of Evaluation Date of Evaluation: 09/23/16 Time of Evaluation: 11:00 - Subjective Subjective: Patient is comfortable in bed, not in distress, much improved pain in the right upper arm, no fevers, no chest pain, no nausea, no diarrhea. Objective - Vital Signs/Intake and Output Vital Signs (last 24 hours): Temp Pulse Resp BP Pulse Ox 98.1 F 88 20 134/82 98 09/22/16 16:00 09/22/16 16:00 09/22/16 16:00 09/22/16 16:00 09/22/16 16:00 Intake and Output: 09/23/16 09/23/16 06:59 18:59 Intake Total 780 Balance 780 - Labs Labs: 09/23/16 12:30 09/22/16 07:00 PT 12.1 Seconds (9.9-11.8) H 09/15/16 21:45 INR 1.12 (0.93-1.08) H 09/15/16 21:45 APTT 29.7 Seconds (23.7-30.8) 09/15/16 21:45 - Constitutional Appears: Non-toxic, No Acute Distress - Head Exam Head Exam: NORMAL INSPECTION - ENT Exam ENT Exam: Mucous Membranes Moist - Neck Exam Neck Exam: absent: Lymphadenopathy, Meningismus - Respiratory Exam Respiratory Exam: Decreased Breath Sounds - Cardiovascular Exam Cardiovascular Exam: +S1, +S2 - GI/Abdominal Exam GI & Abdominal Exam: Soft. absent: Tenderness - Extremities Exam Additional comments: right upper arm with dressings in place, left upper arm with PICC line in place , site clean and non-tender Assessment and Plan - Assessment and Plan (Free Text) Plan: Assessment Sepsis due to right upper arm port-a-cath site infection with cellulitis, with infected venous thrombophlebitis (endovascular infection), with MSSA bacteremia recent diagnosis of lung cancer S/P chemotherapy and radiotherapay about a month ago S/P right upper arm port-a-cath placement about a month ago obesity with BMI 31 Plan Nafcillin has been changed to IV Daptomycin; CPK is only 49 blood cx on 2016 are negative; MISBAH does not show vegetations Discussed with Dr. Medeiros - patient should get 4-6 weeks of antibiotics with weekly ESR, CRP, CBC, CMP, CPK levels Patient may resume chemotherapy with negative blood cx while on antibiotics
== END 2016-09-23 15:33 | disposition home or self-care (01) | DRG 314 ==
LOC: ED 20:21 → ERH 22:53 → 3RNO 09-16 00:23
PROVIDERS: ADMIT Family Medicine; ATTEND Family Medicine
PROC: DW021ZZ Beam Radiation of Chest using Photons 1 - 10 MeV (ICD-10-PCS; 2016-09-17)
PROC: 0J9D0ZX Drainage of Right Upper Arm Subcutaneous Tissue and Fascia, Open Approach, Diagnostic (ICD-10-PCS; 2016-09-21)
PROC: B246ZZ4 Ultrasonography of Right and Left Heart, Transesophageal (ICD-10-PCS; 2016-09-21)
PROC: 0JPV0XZ Removal of Tunneled Vascular Access Device from Upper Extremity Subcutaneous Tissue and Fascia, Open Approach (ICD-10-PCS; principal; 2016-09-21 10:15)
PROC: 02HV33Z Insertion of Infusion Device into Superior Vena Cava, Percutaneous Approach (ICD-10-PCS; 2016-09-22)
PROC: B54NZZA Ultrasonography of Left Upper Extremity Veins, Guidance (ICD-10-PCS; 2016-09-22)
DX: T80.211A Bloodstream infection due to central venous catheter, initial encounter (principal); A41.01 Sepsis due to Methicillin susceptible Staphylococcus aureus; I82.621 Acute embolism and thrombosis of deep veins of right upper extremity; C34.91 Malignant neoplasm of unspecified part of right bronchus or lung; L03.113 Cellulitis of right upper limb; J44.9 Chronic obstructive pulmonary disease, unspecified; B95.61 Methicillin susceptible Staphylococcus aureus infection as the cause of diseases classified elsewhere; Z68.31 Body mass index [BMI] 31.0-31.9, adult; E66.9 Obesity, unspecified; Y83.8 Other surgical procedures as the cause of abnormal reaction of the patient, or of later complication, without mention of misadventure at the time of the procedure; Z87.891 Personal history of nicotine dependence

== ENCOUNTER 2016-11-15 09:20 | Day surgery (SDC) | payer MEDICARE, OTHER ==
[2016-11-15 10:08] LABS: BASO # 0.06 K/mm3 (0.0-2.0); BASO % 0.5 % (0.0-3.0); EOS # 0.1 (0.0-0.7); EOS % 0.8 % (1.5-5.0); GRAN # 9.29 (1.4-6.5); GRAN % 81.7 % (50.0-68.0); HEMOGLOBIN 11.5 g/dL (14.0-18.0); LYMPH # 0.7 (1.2-3.4); LYMPH % 5.9 % (22.0-35.0); MEAN CELL VOLUME 95.5 fl (80.0-105.0); MEAN CORPUSCULAR HEMOGLOBIN 32.5 pg (25.0-35.0); MEAN PLATELET VOLUME 9.1 fl (7.0-11.0); MONO # 1.3 (0.1-0.6); MONO % 11.1 % (1.0-6.0); PLATELET COUNT 136 10^3/uL (120.0-450.0); RBC 3.54 10^6/uL (3.5-6.1); RED CELL DISTRIBUTION WIDTH 18.2 % (11.5-14.5); WHITE BLOOD COUNT 11.4 10^3/ul (4.5-11.0)
[2016-11-15 10:09] VITALS: BMI 29.8
[2016-11-15 10:15] LABS: BLOOD UREA NITROGEN 12 mg/dL (7-21); CALCIUM 9.1 mg/dL (8.4-10.5); GFR AFRICAN-AMERICAN > 60; GFR NON-AFRICAN AMERICAN > 60; INR 0.96 (0.93-1.08); PARTIAL THROMBOPLASTIN TIME 25.3 Seconds (23.7-30.8); PROTHROMBIN TIME 10.4 Seconds (9.9-11.8)
--- NOTE | 2016-11-15 10:16 | CP.SDSHP ---
Same Day Surgery H & P - History Proposed Procedure: insertion of venous port. Pre-Op Diagnosis: lung and skin cancer. - Previous Medical/Surgical History Pulmonary: Smoking Endocrine/Metabolic: Obesity Previous Surgical History: fx great toe removal of axillary cyst. - Allergies Allergies: Allergies No Known Allergies Allergy (Verified 09/15/16 20:46) - Physical Exam General Appearance: WNL. Mental Status: Alert & Oriented x3 Neuro: WNL Heart: WNL Lungs: WNL GI: WNL - Impression Impression: LUNG AND SKIN CANCER. - Date & Time Date: 11/15/16 Time: 10:15 Short Stay Discharge - Short Stay Discharge Admitting Diagnosis/Reason for Visit: LUNG CA C34.90 Disposition: HOME/ ROUTINE Referrals: Óscar Morales MD [Primary Care Provider] -
[2016-11-15] MEDS ORDERED: Lidocaine 2% Inj (20ml) ONE (12:31)
[2016-11-15] MEDS ORDERED: Midazolam 2 MG/2 ML VIAL ONE ×2 (12:32→13:22)
[2016-11-15] MEDS ORDERED: Oxycodone/Acetaminophen 5/325 mg Tab PO PRN (14:14)
[2016-11-15] MEDS ORDERED: Sodium Chloride 0.45% 1,000 ML IV SCH (14:15)
[2016-11-15 14:59] VITALS: PULSE 68; RESP 18; TEMP 97.8; O2SAT 97
[2016-11-15 15:22] VITALS: BP 128/67
--- NOTE | 2016-11-15 21:33 | VASCULAR ---
PROCEDURE: Ultrasound and fluoroscopic right internal jugular venous access port. CLINICAL HISTORY: Lung carcinoma.Venous port for chemotherapy. PHYSICIAN(S): Fabrizio Nevarez M.D. TECHNIQUE: The relative risks and indications of the procedure were explained to the patient and consent obtained. The patient was placed supine on the arteriogram table and the right neck and chest prepped and draped in the usual sterile fashion. Conscious sedation monitoring was provided throughout the procedure by a nurse. Antibiotics were given prior to the procedure. Under direct ultrasound guidance, the 8 internal jugular vein was punctured with a micro-puncture set. A 0.035 angled Glidewire was advanced into the IVC. A 4 cm incision was made below the right clavicle and the pocket blunted dissected. A 8 [place] single-lumen catheter, 28 cm long, was advanced to the SVC/RA junction. The catheter was trimmed and attached to the port. The port aspirates and injects easily. The port was placed in the pocket and closed in 2 layers. The patient tolerated the procedure well. IMPRESSION: Ultrasound and fluoroscopically placed right internal jugular venous access port.
== END 2016-11-15 15:45 | disposition home or self-care (01) ==
LOC: SDSVAS 09:20
PROVIDERS: ATTEND Radiology Vascular & Interventional Radiology
DX: C34.90 Malignant neoplasm of unspecified part of unspecified bronchus or lung (principal); F17.200 Nicotine dependence, unspecified, uncomplicated; E66.9 Obesity, unspecified; Z68.30 Body mass index [BMI] 30.0-30.9, adult
CPT/HCPCS: 36415; 36561; 76937; 77001; 80048; 85025; 85610; 85730; 99152; 99153; C1769; C1788; J0690; J1644; J2250; J2405; J3010; J7030

== ENCOUNTER 2018-04-18 12:03 | Outpatient (CLI) | payer MEDICARE, OTHER | END 2018-04-18 12:04 | disposition home or self-care (01) | LOC: OPLAB 12:03 | DX: E78.5 Hyperlipidemia, unspecified (principal); E83.40 Disorders of magnesium metabolism, unspecified; M81.0 Age-related osteoporosis without current pathological fracture; D64.9 Anemia, unspecified ==

== ENCOUNTER 2018-05-03 07:10 | Outpatient (CLI) | payer MEDICARE, OTHER | END 2018-05-03 07:11 | disposition home or self-care (01) | LOC: PET-BROA 07:10 ==

== ENCOUNTER 2018-05-09 11:56 | Outpatient (CLI) | payer MEDICARE, OTHER | END 2018-05-09 11:57 | disposition home or self-care (01) | LOC: OPLAB 11:56 | DX: E78.5 Hyperlipidemia, unspecified (principal); E83.40 Disorders of magnesium metabolism, unspecified; M81.0 Age-related osteoporosis without current pathological fracture; D64.9 Anemia, unspecified ==

== ENCOUNTER 2018-05-30 12:21 | Outpatient (CLI) | payer MEDICARE, OTHER | END 2018-05-30 12:22 | disposition home or self-care (01) | LOC: OPLAB 12:21 ==

== ENCOUNTER 2018-05-31 06:54 | Outpatient (CLI) | payer MEDICARE, OTHER | END 2018-05-31 06:55 | disposition home or self-care (01) | LOC: RAD 06:54 ==

== ENCOUNTER 2018-06-19 13:20 | Outpatient (CLI) | payer MEDICARE, OTHER | END 2018-06-19 13:21 | disposition home or self-care (01) | LOC: OPLAB 13:20 ==

== ENCOUNTER 2018-07-11 13:19 | Outpatient (CLI) | payer MEDICARE, OTHER | END 2018-07-11 13:20 | disposition home or self-care (01) | LOC: OPLAB 13:19 ==

== ENCOUNTER 2018-08-01 13:01 | Outpatient (CLI) | payer MEDICARE, OTHER | END 2018-08-01 13:02 | disposition home or self-care (01) | LOC: OPLAB 13:01 ==

== ENCOUNTER 2018-08-22 12:41 | Outpatient (CLI) | payer MEDICARE, OTHER | END 2018-08-22 12:42 | disposition home or self-care (01) | LOC: OPLAB 12:41 ==